=== PATIENT | female | born 1995 | race Caucasian/White ===

== ENCOUNTER 2019-02-25 14:05 | Emergency (ER) | payer BC, SELFPAY ==
[2019-02-25 14:07] VITALS: BP 132/84; PULSE 90; RESP 18; TEMP 36.6; O2SAT 99; BMI 34.7
[2019-02-25] MEDS: Ketorolac 15 MG/ML Vial IV (15:07)
[2019-02-25] MEDS: 0.9% Normal Saline 1,000 ML 1000 ML IV (15:07)
[2019-02-25 15:10] LABS: Absolute Neutrophil Count 8.7 X10^3/uL (2.0-7.7); Basophil# 0.07 X10^3/uL; Basophil% 0.6 % (0-1); Eosinophil# 0.15 X10^3/uL; Eosinophils% 1.3 % (0-5); Hematocrit 43.3 % (37-47); Hemoglobin 13.7 g/dL (12.0-15.0); Lymphocyte % 15.1 % (19-41); Mean Corp Hgb Conc 31.6 g/dL (32-36); Mean Corpuscular Hgb 26.4 pg (27.0-32.0); Mean Corpuscular Volume 83.6 fL (81-99); Mean Platelet Vol. 9.5 fl (6.2-12.0); Monocyte# 1.21 X10^3/uL; Monocyte% 10.1 % (0-10); NRBC Flagged by Analyzer 0 % (0-5); Neutrophil # 8.67 X10^3/uL (2.7-7.7); Neutrophil % 72.5 % (47-70); Platelet Count 259 K/mm3 (150-450); RBC Distribution Width SD 42.8 fl (35.1-43.9); Red Blood Count 5.18 M/mm3 (4.2-5.4)
[2019-02-25 15:17] LABS: Bacteria 0 SEEN /hpf (None Seen); Mucous, Urine 0 SEEN /hpf (<or=2+)
[2019-02-25 15:32] LABS: Anion Gap 8 (5-15); BUN 10 mg/dL (7-18); BUN/Creat Ratio 11.5 RATIO (10-20); Calcium,Total 8.9 mg/dL (8.5-10.1); Chloride 108 mmol/L (98-107); Creatinine, Serum 0.87 mg/dL (0.55-1.02); EST Glomerular Filtration Rate 84 mL/min (>60); Est Glom Filt Rate - Afr Amer 101 mL/min (>60); Estimated Creatinine Clearance 98.85 ml/min; Glucose 86 mg/dL (74-106); Potassium 4.4 mmol/L (3.5-5.1); Sodium Level 142 mmol/L (136-145)
[2019-02-25 15:40] LABS: Color, Urine Yellow (Yellow); Glucose, Dipstick Normal (Normal); Ketone-Dipstick 5 mg/dl (Negative); Leukocyte Esterase-Dipstick 25 /ul (Negative); Nitrite-Dipstick Negative (Negative); Occult Blood-Urine 10 /ul (Negative); Protein-Dipstick 15 mg/dl (Negative); Specific Gravity, Urine 1.015 (1.002-1.030); Urine Clarity Cloudy (Clear); Urine Urobilinogen Normal (Normal)
--- NOTE | 2019-02-25 15:41 | ED.VIS.GEN ---
History of Present Illness Chief Complaint: General Illness Narrative: Patient presenting for evaluation secondary to generalized illness. Patient states that she has been sick for basically a week. It started with a sore throat and ear pain. She states that those symptoms persisted over the course of 5 days, but in the last 24 to 48 hours she is developed significant fatigue and fevers. Patient denies that she is having any sort of headache or neck pain. She went to urgent care had a rapid strep test that was obtained which was negative, so they felt that she needed to come to the emergency department for further evaluation. Patient denies significant nausea vomiting or diarrhea. No urinary signs or symptoms. No sick contacts, recent admissions to the hospital, antibiotic exposure, or travel. Past Medical History - Allergies and Home Meds Allergies/Adverse Reactions: Allergies latex Allergy (Verified 02/25/19 14:06) Hives dicyclomine [From Bentyl] Adverse Reaction (Verified 02/25/19 14:06) Other Primary Care Physician: Jamil Ridley DO [Primary Care Provider] - Past Medical History: None Smoking Status: Never smoker Review of Systems All systems negative except as indicated General: Reports: Chills, Fever, Malaise ENT: Reports: Bilateral ear pain, Sore throat Respiratory: Denies: Cough Physical Exam Vital Signs/Narrative: Vital Signs Temp Pulse Resp BP Pulse Ox 02/25/19 14:07 97.8 F 90 18 132/84 H 99 Inital Vital Signs reviewed: Yes General: Well nourished, Well developed, No Acute Distress Head: Normocephalic, Atraumatic Eyes: Perrl, EOMI ENT: Moist mucous membranes, No rhinorrhea, - - Some cobblestoning is noted in the posterior pharynx, but no evidence of posterior fullness asymmetry erythema or exudate. Anterior cervical lymphadenopathy is noted Neck: Supple, Nontender Cardiovascular: Regular rate, Regular rhythm, No murmurs Respiratory: No distress, CTA bilaterally, Chest nontender Abdomen: Soft, Nontender, Nondistended, Normal bowel sounds Back: Nontender, Normal Inspection Extremities: Nontender, No edema Skin: Normal color, No rash Neurological: Alert, Oriented x3, Cranial nerves II-XII grossly intact, Normal Strength, Normal Sensation Psychological: Normal affect, Normal Mood Diagnostic/Tx/Re-eval - Medical Decision Making Patient presented secondary to generalized illness. Patient was given fluids and Toradol. Urine was negative. Urinalysis was negative. CBC, chemistry, influenza were also found to be unremarkable. Repeat evaluation and patient at 1630 showed some symptomatic improvement. At this point patient likely has an element of viral illness. She was recommended conservative treatment and follow-up with primary care. ED Disposition - Plan for ED Patient: Disposition: Home or Assisted Living Diagnosis: Viral illness Instructions: FEBRILE ILLNESS, Uncertain Cause (Adult) Referrals: Jamil Ridley, [Primary Care Provider] - 3-5 Days if not improving
[2019-02-25 15:47] LABS: Urine Bilirubin Dipstick 1 mg/dL (Negative)
[2019-02-25 15:56] LABS: Internal QC Validated? YES +Cl - CLEAR BKGD; Pregnancy, Urine Negative Negative
[2019-02-25 16:15] LABS: Amorphous Sediment 1+ URATE; Red Blood Cells-Urine 0-5 SEEN /hpf (0-5); Squamous Epithelial Cells - UA 10-25 SEEN /hpf (5-10); White Blood Cells 0-5 SEEN /hpf (0-5)
[2019-02-25 16:58] VITALS: BP 122/86; PULSE 69; RESP 18; O2SAT 98
--- NOTE | 2019-02-25 16:58 | ED.RN ---
PT GIVEN WRITTEN AND VERBAL DISCHARGE INSTRUCTIONS. PT VERBALIZES UNDERSTANDING AND DENIES ANY FURTHER QUESTIONS. PT VERBALIZES UNDERSTANDING AND DENIES ANY FURTHER QUESTIONS. PT IV D/C AND COVERED WITH 2X2 GAUZE AND PAPER TAPE. PT DRESSES SELF AND AMBULATES OUT OF DEPT WITH FAMILY.
== END 2019-02-25 17:01 | disposition home or self-care (01) ==
PROVIDERS: Emergency Provider Emergency Medicine; Family Provider Student in an Organized Health Care Education/Training Program; PCP Student in an Organized Health Care Education/Training Program
DX: B34.9 Viral infection, unspecified (principal); Z91.040 Latex allergy status
CPT/HCPCS: 80048; 81001; 81025; 85025; 87804; 99283; J7030; A4216

== ENCOUNTER 2019-11-19 10:11 | Emergency (ER) | payer BC, SELFPAY ==
[2019-11-19 10:13] VITALS: BP 148/96; PULSE 77; RESP 18; TEMP 36.2; O2SAT 99; BMI 34.2
--- NOTE | 2019-11-19 10:44 | US_ITS ---
STUDY: ULTRASOUND TRANSVAGINAL CLINICAL: Female, 24 years old. HEAVY BLEEDING AND CRAMPING X 4 DAYS- PLAN B PILL TAKEN 6 DAYS AGO -- ON BC PILL TECHNIQUE: Transvaginal COMPARISON: None. FINDINGS: Normal uterine size measuring 6.9 cm in maximal craniocaudal dimension. There are no myometrial masses. Normal endometrial thickness measuring 3 mm. There are no endometrial masses, and there is no fluid in the endometrial cavity. Normal uterine cervix. Normal right ovary, measuring 3.9 x 1.5 x 1.5 cm. There are multiple follicles without a dominant cyst. Normal left ovary, measuring 1.9 x 2.6 x 1.0 cm. There are multiple follicles without a dominant cyst. The bladder is sonographically normal No demonstrated free fluid US/Transvaginal Non- IMPRESSION: No suspicious sonographic findings Electronically Signed: Ashkan Blanc MD at 12:51 EDT , Service support ,
[2019-11-19 10:58] LABS: Bacteria 0 SEEN /hpf (None Seen); Mucous, Urine 0 SEEN /hpf (<or=2+); White Blood Cells 0 SEEN /hpf (0-5)
[2019-11-19 11:02] LABS: Glucose, Dipstick Normal (Normal); Internal QC Validated? YES +Cl - CLEAR BKGD; Ketone-Dipstick Negative (Negative); Leukocyte Esterase-Dipstick Negative /ul (Negative); Nitrite-Dipstick Negative (Negative); Occult Blood-Urine 250 /ul (Negative); Pregnancy, Urine Negative Negative; Protein-Dipstick 15 mg/dl (Negative); Urine Bilirubin Dipstick Negative (Negative); Urine Clarity Cloudy (Clear); Urine Urobilinogen Normal (Normal)
[2019-11-19 11:03] LABS: Color, Urine SEE COMMENT BELOW (Yellow)
[2019-11-19 11:09] LABS: Red Blood Cells-Urine 25-50 SEEN /hpf (0-5)
[2019-11-19 11:10] LABS: Squamous Epithelial Cells - UA 0-5 SEEN /hpf (5-10)
--- NOTE | 2019-11-19 11:30 | ED.VISSUMM ---
- ER Visit Summary Date of Service: 11/19/19 Chief Complaint: Pelvic cramping History of Present Illness: The patient is a 24 F presenting with pelvic cramping. Patient states that she had intercourse on Sunday and took Plan B on . On Sunday she started having pelvic cramping. On Sunday she started having vaginal bleeding. She states that it is not the right time for her period. She has cramps that feels like typical menstrual cramps. She denies syncope. She does not believe she could be . Denies other complaints. Physical Examination: Vitals are stable. Patient is afebrile. Alert no acute distress. HEENT exam is unremarkable. Neck is supple. Lungs are clear and equal bilaterally. Heart is regular rate and rhythm. Abdomen is soft suprapubic tenderness with no guarding or rebound Pelvic exam: Small amount of blood in the vaginal vault with no adnexal tenderness. Extremities are unremarkable. Skin is warm and dry. Remainder of exam is unremarkable. Emergency Department Course and Treatment: Urinalysis shows 25-50 red blood cells, 0 white cells. hCG negative. Pelvic ultrasound shows no suspicious sonographic findings. Patient was given Toradol IM with improvement. On repeat evaluation, she is feeling improved. She is advised to continue NSAIDs at home. Advised to follow-up with COMPUTER SYSTEMS ENGINEER. Advised return to the ED for worsening complaints. Disposition: Discharge home Impression: Irregular vaginal bleeding This note was generated with [employer] dictation software. It may contain incorrect words, spelling, and punctuation that were not noted in review of the chart prior to signing ED Disposition - Plan for ED Patient: Instructions: ED Pelvic Pain [facility] Referrals: Jamil Ridley DO [Primary Care Provider] - Eliza Lugo NP-C [Nurse Practitioner] -
[2019-11-19] MEDS: Ketorolac 30 MG/ML Syringe IM (11:57)
--- NOTE | 2019-11-19 12:57 | ED.DEP ---
ED Disposition - Plan for ED Patient: Instructions: ED Pelvic Pain [facility] Referrals: Jamil Ridley DO [Primary Care Provider] - Eliza Lugo NP-C [Nurse Practitioner] -
== END 2019-11-19 13:18 | disposition home or self-care (01) ==
LOC: ED 12:34
PROVIDERS: Emergency Provider Emergency Medicine; PCP Student in an Organized Health Care Education/Training Program
DX: N93.9 Abnormal uterine and vaginal bleeding, unspecified (principal); I10 Essential (primary) hypertension
CPT/HCPCS: 76830; 81001; 81025; 96372; 99282

== ENCOUNTER → 2020-02-05 16:25 | Outpatient (CLI) | payer BC, SELFPAY ==
[2020-02-05 15:03] VITALS: BMI 34.2
[2020-02-10 03:06] LABS: Chlamydia By Nucleic Acid AMP Negative (Negative)
[2020-02-10 09:44] LABS: Gonococcus By Nucleic Acid AMP Negative (Negative)
[2020-02-13 02:07] LABS: HPV APTIMA, High Risk Positive (Negative); HPV Reflexed? YES, CHARGE PATIENT
== END ==
PROVIDERS: PCP Student in an Organized Health Care Education/Training Program; Referring Provider Nurse Practitioner Women's Health; Visit Provider Nurse Practitioner Women's Health
DX: Z11.3 Encounter for screening for infections with a predominantly sexual mode of transmission (principal)
CPT/HCPCS: 87491; 87591; 87624; 88175; G0145

== ENCOUNTER → 2020-03-02 18:07 | Outpatient (CLI) | payer BC, SELFPAY ==
--- NOTE | 2020-03-02 | IMM_PTH ---
PATIENT: RICHARD FIGUEROA LOC: [facility] U#:[id number] AGE/SX: 30/F ROOM: RE03/02/[address]: Dr. Earnestine Bowling MD : 1995 BED: DIS: SPEC #: [id number] RECD: 03/04/20 12:03 STATUS: MARLEY HI #: [id number] STEVE: 03/02/20 00:[address]: Earnestine Bowling DEPT: IMMUNOHISTOCHEMISTRY RECD BY: Lula Gonzales Tissues: A - Endocervical Procedures: p16 (initial) KI-67 (add) PHYSICIAN & INSTITUTION [place] [id number] SPECIMEN INFORMATION: Tissue Source: A - Cervix at 12 and 6 o'clock Clinical Info: ASCUS HPV+ Specimen Number: [id number] CPT code: 11697, 57769 METHODOLOGY: Deparaffinized sections of prefer/formalin-fixed tissue or PAP/DQ stained slides are incubated with monoclonal/polyclonal antibodies/oligonucleotide probes. Localization is made via biotin free immunoperoxidase method. Appropriate controls are performed and reacted as expected. Results on target cell population are indicated in the following table: RESULTS: ANTIBODY / CLONE RESULT Block A P16 (E6H4) positive, focal, block-like Ki-67 (30-9) positive, moderate These tests were developed and their performance characteristics determined by [facility]. They may not have been cleared or approved by the U.S. Food and Drug Administration. The FDA has determined that such clearance or approval is not necessary. The above immunohistochemical/dualISH markers are ordered and reviewed by the Pathologist. INTERPRETATION: A. 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 AM:brigido 03/05/20 Case has been reviewed in consultation with Dr. Perez who concurs with the above diagnosis. IDC:SJ
--- NOTE | 2020-03-02 | CER_PTH ---
PATIENT: RICHARD FIGUEROA [facility]#:[id number] AGE/SX: 30/F ROOM: RE03/02/[address]: Dr. Earnestine Bowling MD : 1995 BED: DIS: SPEC #: [id number] RECD: 03/02/20 18:07 STATUS: MARLEY HI #: [id number] STEVE: 03/02/20 00:[address]: Earnestine Bowling DEPT: SURGICAL PATHOLOGY RECD BY: Tena Lindsay Tissues: A - Uterine cervix, NOS B - Endocervical Procedures: Surgery Specimen Level IV HEADER OPERATION: Colposcopy PRE-OP DIAGNOSIS: ASCUS HPV+ TISSUE SUBMITTED: A - Cervix at 12 and 6 o'clock, B - ECC MICROSCOPIC DIAGNOSIS A. Cervix at 6 and 12 o'clock, biopsies: Mild and focal moderate squamous dysplasia, CADY I-II (HSIL). Changes consistent with HPV cytopathic effect. Chronic inflammation. See comment. B. Endocervix, curettings (cell block): Scant benign endocervical cells present. No evidence of dysplasia. AM:brigido 03/04/20 COMMENT A. Results from immunohistochemistry ([id number]) for surrogate HPV marker (p16) will be reported separately. Case has been reviewed in consultation with Dr. Perez who concurs with the above diagnosis. IDC:SJ MICROSCOPIC DESCRIPTION Slides are reviewed. GROSS DESCRIPTION A - Received in fixative is one container labeled with the patient's name and designated 12 and 6 o'clock. The specimen consists of two irregular fragments of light gaitan soft tissue that in aggregate measure 0.8 x 0.6 x 0.1 cm. The specimen is totally submitted in one cassette. B - Received in fixative is one container labeled with the patient's name and designated endocervix curettings. The specimen consists of a scant amount of soft tissue. The specimen is totally submitted for cell block preparation. / AM:brigido 03/03/20 TC:3 CPT: 37904 x2
[2020-03-02 14:53] VITALS: BMI 33.9
== END ==
PROVIDERS: Visit Provider Obstetrics & Gynecology
DX: N87.1 Moderate cervical dysplasia (principal)
CPT/HCPCS: 88305; 88341; 88342

== ENCOUNTER → 2020-03-30 17:30 | Outpatient (REF) | payer BC, SELFPAY ==
[2020-03-22 13:06] VITALS: BMI 34.2
[2020-03-30 19:43] LABS: Probe Check PASS; Specimen Processing Control PASS
== END ==
LOC: COVBMS 17:30
PROVIDERS: Obstetrics & Gynecology; PCP Student in an Organized Health Care Education/Training Program; Referring Provider Obstetrics & Gynecology; Visit Provider Obstetrics & Gynecology
DX: Z20.828 Contact with and (suspected) exposure to other viral communicable diseases (principal)
CPT/HCPCS: 87633; 87635; C9803; U0002

== ENCOUNTER 2020-04-06 09:50 | Day surgery (SDC) | payer BC, SELFPAY ==
[2020-03-22 13:06] VITALS: BMI 34.2
[2020-04-06] VITALS (8 sets, daily range): BP systolic 102–125; BP diastolic 68–88; PULSE 52–76; RESP 12–18; TEMP 35.8–36.5; O2SAT 95–100; BMI 34.2
--- NOTE | 2020-04-06 | IMM_PTH ---
PATIENT: RICHARD FIGUEROA LOC: [facility] U#:[id number] AGE/SX: 25/F ROOM: RE04/06/[address]: Dr. Earnestine Bowling MD : 1995 BED: DIS: 04/06/2020 SPEC #: [id number] RECD: 04/07/20 13:21 STATUS: MARLEY REQ #: [id number] STEVE: 04/06/20 00:[address]: Earnestine Bowlnig DEPT: IMMUNOHISTOCHEMISTRY RECD BY: Lula Gonzales ENTERED: 04/07/20 13:22 SP TYPE: IMMUNO OTHR DR: Dr. Jamil Ridley, Tissues: A - UTERINE CERVIX LEEP Procedures: p16 (initial) KI-67 (add) P16 (add) PHYSICIAN & INSTITUTION [place] [address] SPECIMEN INFORMATION: Tissue Source: A - LEEP Clinical Info: CADY II Specimen Number: [id number] A2 & A4 CPT code: 41501, 07227 x3 METHODOLOGY: Deparaffinized sections of prefer/formalin-fixed tissue or PAP/DQ stained slides are incubated with monoclonal/polyclonal antibodies/oligonucleotide probes. Localization is made via biotin free immunoperoxidase method. Appropriate controls are performed and reacted as expected. Results on target cell population are indicated in the following table: RESULTS: ANTIBODY / CLONE RESULT Block A2 P16 (E6H4) positive, focal block staining Ki-67 (30-9) positive, moderate Block A4 P16 (E6H4) positive, focal patchy staining Ki-67 (30-9) positive, low These tests were developed and their performance characteristics determined by [facility]. They may not have been cleared or approved by the U.S. Food and Drug Administration. The FDA has determined that such clearance or approval is not necessary. The above immunohistochemical/dualISH markers are ordered and reviewed by the Pathologist. INTERPRETATION: A. Cervix, LEEP conization: Focal mild and moderate squamous dysplasia. SJ:brigido 04/08/20
--- NOTE | 2020-04-06 10:16 | PCM.HPOB.BLA ---
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 Is patient in pain?: No Allergies latex Allergy (Verified 03/22/20 13:07) Hives dicyclomine [From Bentyl] Adverse Reaction (Verified 03/22/20 13:07) Other Medications Hydrochlorothiazide 12.5 mg DAILY 02/25/19 [History Confirmed 03/22/20] norethindrone (contraceptive) 0.35 mg tablet 0.35 mg PO QDAY #84 tab 02/05/20 [Rx Confirmed 03/22/20] Post menopausal: No Patient : No : No PFSH Medical History HTN (hypertension) (Chronic) Surgical History (Updated 03/22/20 @ 13:06 by Michelle New) History of colonoscopy (Acute) History of esophagogastroduodenoscopy (EGD) (Acute) History of tonsillectomy (Acute) Status post colposcopy (Acute) Family History Unknown Diabetes Heart disease Hypertension Social History (Updated 03/22/20 @ 18:[address] Earnestine Bowling MD) adopted: No number of children: 0 current occupational status: employed current occupation: [employer] history of recent travel: No sexually active: Yes Smoking Status: Never smoker alcohol intake: current alcohol intake frequency: a few times a month substance use type: does not use what type of physical activity do you participate in: none seatbelt use: always do you feel safe at home: Yes additional social history: Single HPI HSIL pap: Details: RICHARD JIMENES is a 25 year old who presents for colposcopy results. Patient reports overall doing well since colposcopy. Denies vaginal bleeding. Does report occasional occasional cramping that sometimes is severe enough that she requires ibuprofen. Otherwise reports doing well. ROS Const Reports system reviewed and no additional complaints, except as documented Card Reports system reviewed and no additional complaints, except as documented Resp Reports system reviewed and no additional complaints, except as documented GI Reports system reviewed and no additional complaints, except as documented Reports system reviewed and no additional complaints, except as documented Musc Reports system reviewed and no additional complaints, except as documented all other systems reviewed and negative Exam Const General: cooperative, healthy appearing, comfortable, well developed, well groomed Neck Neck: normal visual inspection, full ROM Resp Effort & Inspection: normal respiratory effort, able to speak in complete sentences, symmetric chest movement Cardio Rate: regular rate Skin General: no rashes or lesions noted, elasticity normal, turgor normal Lesions: no lesions Rashes: no rashes Neuro General: alert, awake, oriented x3 Cranial Nerves: CN's II-XI intact bilaterally, PERRL, EOM intact bilaterally Cognition: normal cognition Speech: speech normal Gait: normal gait Extrem General: normal to inspection, full ROM, no pedal edema Psych Appearance: grossly normal Mental Status: mental status grossly normal Mood: congruent mood Affect: normal affect Speech and Movement: speech and movement normal Attitude: cooperative Thought Process: normal Thought Content: normal Assessment & Plan 1. CADY II (cervical intraepithelial neoplasia II) N87.1 Plan Pap ASCUS with positive high-risk other HPV. Colposcopy pathology CADY 1-2 with moderate dysplasia. ECC negative. Reviewed with patient that per ASC CP guidelines neck steps in management could be either immediate LEEP procedure or close follow-up with repeat colposcopy and cotesting at 6 and 12 months. Risks and benefits of each option reviewed with the patient. She is nulliparous and is concerned about possible implications. She is considering expectant management, but wanted to go home and allow her time to think about this. We did also discussed the risks, benefits, indications, and alternatives to a LEEP procedure. We discussed the possible risk of bleeding and that this is typically controlled using cautery. Discussed risk of infection relatively low, but would typically present with foul smelling discharge or fevers after delivery. Discussed risk of damage to cervix and uterus. Discussed that this can rarely result in excessive bleeding that could potentially result in need for hysterectomy. Also discussed possible impact on future fertility. The patient and her mother were given the opportunity to ask questions and all questions were answered to the best of my ability. Handouts provided from [facility] and up-to-date with information regarding management of abnormal Pap smears and LEEP procedures. UPDATE- I have seen the patient and performed any clinically relevant updates to the history and physical exam. Earnestine Bowling MD
[2020-04-06 10:19] LABS: Hematocrit 42.9 % (37-47); Hemoglobin 13.5 g/dL (12.0-15.0); Mean Corp Hgb Conc 31.5 g/dL (32-36); Mean Corpuscular Hgb 26.4 pg (27.0-32.0); Mean Platelet Vol. 9.4 fl (6.2-12.0); Platelet Count 342 K/mm3 (150-450); RBC Distribution Width CV 13.9 % (11.6-14.6); RBC Distribution Width SD 42.1 fl (35.1-43.9); Red Blood Count 5.11 M/mm3 (4.2-5.4); White Blood Count 8.1 K/mm3 (4.4-11.0)
[2020-04-06 10:21] LABS: Internal QC Validated? YES +Cl - CLEAR BKGD; Pregnancy, Urine Negative Negative
[2020-04-06] MEDS: Lactated Ringers 1,000 ML 100 ML IV (10:44)
--- NOTE | 2020-04-06 11:30 | CER_PTH ---
PATIENT: RICHARD FIGUEROA LOC: [facility] U#:[id number] AGE/SX: 25/F ROOM: RE04/06/[address]: Dr. Earnestine Bowling MD : 1995 BED: DIS: 04/06/2020 SPEC #: [id number] RECD: 04/06/20 13:09 STATUS: MARLEY REKala #: [id number] STEVE: 04/06/20 11:[address]: Earnestine Bowling DEPT: SURGICAL PATHOLOGY RECD BY: Tena Lindsay ENTERED: 04/06/20 13:28 SP TYPE: CERV OTHR DR: Dr. Jamil Ridley, Tissues: A - UTERINE CERVIX LEEP B - Endocervical Procedures: Surgery Specimen Level IV Surgery Specimen Level V HEADER OPERATION: LEEP cone PRE-OP DIAGNOSIS: CADY II TISSUE SUBMITTED: A - LEEMarisela, B - ECC MICROSCOPIC DIAGNOSIS A. Cervix, LEEP conization: Mild and focal moderate squamous dysplasia. Chronic inflammation and squamous metaplasia. Resection margins are free of dysplastic changes. See comment. B. ECC: Paucicellular specimen showing rare desquamated benign endocervical epithelial cells. See comment. SJ:brigido 04/07/20 COMMENT A. Immunohistochemistry ([id number]) for surrogate HPV marker (p16) supports the above diagnosis. MICROSCOPIC DESCRIPTION Slides are reviewed. GROSS DESCRIPTION A - Received in fixative is one container labeled with the patient's name and designated LEEP. The specimen consists of a gaitan, indurated piece of LEEP conization measuring 1.5 x 1.5 cm and up to 1.5 cm in length. No mucosal lesion is identified. The nonmucosal surface is inked black. The endocervical resection margin is inked blue. The specimen is not oriented. The specimen is serially sectioned and submitted entirely in four cassettes with each cassette containing one quadrant. B - Received in fixative is one container labeled with the patient's name and designated ECC. The specimen consists of a scant amount of soft tissue. The specimen is totally submitted for cell block preparation. / ANÍBAL:brigido 04/06/20 TC:5 CPT: 78017, 09699
--- NOTE | 2020-04-06 12:16 | DCINST_ITS ---
Discharge Diet: No Restrictions Discharge Activity: Return to Normal Activity, May not drive while taking narcotic pain medications. May resume sexual activity in: 4 weeks - nothing in the vagina for 4 weeks. Call your doctor if you observe: Fever of 101 or Higher, Using more than one pad per hour Allergies/Adverse Reactions: Allergies latex Allergy (Verified 04/06/20 10:19) Hives dicyclomine [From Bentyl] Adverse Reaction (Verified 04/06/20 10:19) Other Medications to take at Discharge Hydrochlorothiazide 12.5 mg PO DAILY 02/25/19 norethindrone (contraceptive) 0.35 mg tablet 0.35 mg PO QDAY #84 tab 02/05/20 Ibuprofen [Motrin] 600 mg PO Q6H PRN PRN #30 tab 04/06/20 Oxycodone [Oxyir] 5 mg PO Q6H PRN PRN 7 Days #5 tab 04/06/20 The following prescriptions were given: Ibuprofen [Motrin] 600 mg PO Q6H PRN PRN #30 tab PRN Reason: Pain Transmission Status: Pending to [facility] Oxycodone [Oxyir] 5 mg PO Q6H PRN PRN 7 Days #5 tab PRN Reason: Pain Score 6-10/10 Transmission Status: Sent to [facility] Primary Care Physician: Jamil Ridley DO [Primary Care Provider] - Test Results: Test results from this visit will be discussed in further detail at your follow- up appointment, if applicable. Please Follow Up With: Earnestine Bowling MD When: 2 weeks
--- NOTE | 2020-04-06 12:19 | PCM.OPRPT ---
Problem List (1) CADY II (cervical intraepithelial neoplasia II) Status: Acute Report of Operation Date of Procedure: 04/06/20 Pre-Operative Diagnosis: CADY II Post-Operative Diagnosis: Same Surgery/Procedure Performed:: LEEP, ECC Description of Surgical Findings:: Well appearing cervix. Nonstaining area from 12-3 o'clock once Lugol's solution was applied. Type of Anesthesia:: Local MAC Special Medications: 1% lidocaine Specimen's removed: LEEP of cervix, ECC Estimated Blood Loss (mL): 10 ml Description of Procedure: Patient was taken to the operating room where general anesthesia was obtained without difficulty. She was prepped and draped in the dorsolithotomy position with yellowfin stirrups. A insulated speculum was placed in the vagina. A paracervical block was performed using 10 cc of 1% lidocaine. Lugol's solution was applied to the cervix and a nonstaining area was noted from 12-3 o'clock. A 1 cm loop was then used to perform the LEEP on 70 W of pure cut energy. An endocervical curettage was then performed. The rollerball was then used to obtain hemostasis. Adequate hemostasis was noted and Monsel solution was applied to the cervix. All instruments were removed from the vagina. All counts were correct x2. The patient was taken to the recovery room in stable condition. - Complications None - Admit VTE Documentation VTE Present on Admission: No VTE Mechan Device Prophylaxis: [facility] [place] VTE Pharm Prophylaxis ordered?: No Multi Select Codes - Urinary/Genital Urinary/Genital CPT Codes: 93615 Endocervical curettage, 05065 LEEP
[2020-04-06] MEDS: Iodine/Potassium Iodide 14ML Bottle 1 DRP TOPICAL (12:25)
[2020-04-06] MEDS: FERRIC SUBSULFATE 8 GM SOLN (12:30)
== END 2020-04-06 14:28 | disposition home or self-care (01) ==
LOC: SDC 09:51 → AC 09:57
PROVIDERS: Anesthesiology; PCP Student in an Organized Health Care Education/Training Program; Referring Provider Obstetrics & Gynecology; Visit Provider Obstetrics & Gynecology
PROC: 0UBC7ZZ Excision of Cervix, Via Natural or Artificial Opening (ICD-10-PCS; CPT 57522; principal; 2020-04-06 11:15)
DX: N87.1 Moderate cervical dysplasia (principal); Z91.040 Latex allergy status; I10 Essential (primary) hypertension
CPT/HCPCS: 00940; 57522; 81025; 85027; 86850; 86900; 86901; 87426; 88305; 88307; 88341; 88342; J7120; J2405

== ENCOUNTER 2020-04-20 11:26 | Day surgery (SDC) | payer BC, SELFPAY ==
[2020-04-16 11:32] VITALS: BMI 34.7
[2020-04-20] VITALS (8 sets, daily range): BP systolic 120–159; BP diastolic 88–106; PULSE 76–113; RESP 16–18; TEMP 36.6–36.7; O2SAT 93–100; BMI 36.1
--- NOTE | 2020-04-20 12:09 | ED.VIS.GEN ---
History of Present Illness Chief Complaint: Vag Bleeding Informant: Patient Onset: Weeks Maximum Severity: Mild Narrative: Patient presents complaining of vaginal bleeding Indicates she had a LEEP procedure related to abnormal cervical cells about 10 days ago she had persistent bleeding she was seen by her providers [facility] [employer] [facility] she had some spike of medication placed over her cervix seem to slow the bleeding down never stop it the bleeding intensified today she called her providers was unable to get through via the phone and she came to the emergency department she also complaining of crampy lower pelvic pain since the procedure She is on no supplement she has no history of bleeding disorder she has no other complaints Past Medical History - Allergies and Home Meds Allergies/Adverse Reactions: Allergies latex Allergy (Verified 04/20/20 11:27) Hives dicyclomine [From Bentyl] Adverse Reaction (Verified 04/20/20 11:27) Other Primary Care Physician: Jamil Ridley DO [Primary Care Provider] - Past Medical History: - Smoking Status: Never smoker Review of Systems ROS: - Recent LEEP procedure General: Denies: Chills, Fever, Sweats Eyes: Denies: Visual changes - bilaterally, Diplopia ENT: Denies: Rhinorrhea, Sore throat Cardiovascular: Denies: Chest pain, Palpitations Respiratory: Denies: Dyspnea, Cough, Dyspnea on exertion Gastrointestinal: Denies: Abdominal pain, Nausea, Vomiting, Diarrhea, Melena, Hematochezia Genitourinary: Reports: - - Crampy pelvic pain vaginal bleeding. Denies: Dysuria, Hematuria, Frequency Musculoskeletal: Denies: Back pain, Extremity Pain Skin: Denies: Rash, Wounds Neurological: Denies: Headache, Weakness, Numbness Physical Exam Vital Signs/Narrative: Vital Signs Temp Pulse Resp BP Pulse Ox 04/20/20 11:27 97.9 F 113 H 17 159/106 H 98 General: Well nourished, Well developed, No Acute Distress Head: Normocephalic, Atraumatic Eyes: Perrl, EOMI ENT: Moist mucous membranes, No rhinorrhea Neck: Supple, Nontender Cardiovascular: Regular rate, Regular rhythm, No murmurs Respiratory: No distress, CTA bilaterally, Chest nontender Abdomen: Soft, Nontender, Nondistended, Normal bowel sounds : - - Examined with nurse director of teaching and learning she has a vaginal vault full of blood clots and blood were removed, the cervix was visualized there appears to be a red scab over most of the cervix this area seem to be oozing slowly blood there was no obvious signs of definitive aggressive bleeding Back: Nontender, Normal Inspection Extremities: Nontender, No edema Skin: Normal color, No rash Neurological: Alert, Oriented x3, Cranial nerves II-XII grossly intact, Normal Strength, Normal Sensation Psychological: Normal affect, Normal Mood Diagnostic/Tx/Re-eval - Medical Decision Making Given all the above and her complaints and the degree of bleeding weeks paged [facility] [employer] [employer] [facility] to discuss with them With Dr. Julio Cesar Garzon she will be coming down shortly to see the patient for further management Disposition Home stable after being seen by gynecology Impression final bleeding from LEEP incision status post LEEP procedure ED Disposition - Plan for ED Patient: Diagnosis: Bleeding from LEEP site Referrals: Jamil Ridley DO [Primary Care Provider] -
[2020-04-20] MEDS: FERRIC SUBSULFATE 8 GM SOLN TOPICAL (12:40)
[2020-04-20] MEDS: Lactated Ringers 1,000 ML 999 ML IV (13:35)
[2020-04-20] MEDS: fentaNYL 100 MCG/2 ML Ampul 50 MCG IV (13:36)
[2020-04-20] MEDS: FERRIC SUBSULFATE 8 GM SOLN (13:38)
[2020-04-20] MEDS: Lidocaine 1% (20 ml mdv) 20 ML Vial (13:40)
[2020-04-20 13:45] LABS: Absolute Lymphocyte Count 1.49 X10^3/uL (0.83-4.51); Absolute Neutrophil Count 2.8 X10^3/uL (2.0-7.7); Basophil# 0.02 X10^3/uL; Basophil% 0.4 % (0-1); Eosinophil# 0.06 X10^3/uL; Eosinophils% 1.2 % (0-5); Hematocrit 40.2 % (37-47); Hemoglobin 12.6 g/dL (12.0-15.0); Lymphocyte # 1.49 X10^3/ul (4.0); Lymphocyte % 30.5 % (19-41); Mean Corp Hgb Conc 31.3 g/dL (32-36); Mean Corpuscular Hgb 26.4 pg (27.0-32.0); Mean Corpuscular Volume 84.3 fL (81-99); Mean Platelet Vol. 9.8 fl (6.2-12.0); Monocyte# 0.54 X10^3/uL; NRBC Flagged by Analyzer 0 % (0-5); Neutrophil # 2.76 X10^3/uL (2.7-7.7); Neutrophil % 56.5 % (47-70); Platelet Count 296 K/mm3 (150-450); RBC Distribution Width CV 14.2 % (11.6-14.6); RBC Distribution Width SD 43.8 fl (35.1-43.9); Red Blood Count 4.77 M/mm3 (4.2-5.4); White Blood Count 4.9 K/mm3 (4.4-11.0)
--- NOTE | 2020-04-20 14:01 | NURSING ---
OR THEN MED SURG MARCANTHONY VAG BLEED
--- NOTE | 2020-04-20 14:15 | PCM.HP.STD ---
Problem List (1) Post-op bleeding Status: Acute (2) H/O LEEP Status: Acute History of Present Illness Date of Admission: 04/20/20 The patient is a 25 year old F presents with postop bleeding from the cervix, needs to have reoperation to manage. Past Medical History Medical History: Medical History (Last Reviewed 04/16/20 @ 11:32 by Michelle New) HTN (hypertension) I10 Allergies latex Allergy (Verified 04/20/20 11:27) Hives dicyclomine [From Bentyl] Adverse Reaction (Verified 04/20/20 11:27) Other Home Medications: Ambulatory Orders Medication Instructions Recorded Hydrochlorothiazide 12.5 mg PO DAILY 02/25/19 norethindrone (contraceptive) 0.35 0.35 mg PO QDAY #84 tab 02/05/20 mg tablet Naproxen [Naprosyn] 250 - 500 mg PO Q8H PRN PRN #30 tab 04/20/20 Oxycodone HCl/Acetaminophen 1 - 2 tab PO Q6H PRN PRN 7 Days 04/20/20 [Percocet 5-325] #15 tab Surgical History: Surgical History (Last Reviewed 04/16/20 @ 11:32 by Michelle New) History of colonoscopy Z98.890 History of esophagogastroduodenoscopy (EGD) Z98.890 History of tonsillectomy Z90.89 S/P LEEP Z98.890 CADY II, moderate dysplasia, - margins, - ECC Status post colposcopy Z98.890 Smoking Status: Never smoker Review of Systems Constitutional: Denies: Fever, Malaise Eyes: Denies: Blurred vision, Vision Change HEENT: Reports: Head Aches. Denies: Visual Changes Cardiovascular: Reports: Light Headedness. Denies: Chest Pain, Palpitations Respiratory: Denies: Cough, Shortness of Breath, Wheezing Gastrointestinal: Reports: Abdominal Pain, Nausea. Denies: Diarrhea, Vomiting Genitourinary: Denies: Dysuria, Hematuria Gynecological: Reports: Vaginal bleeding Musculoskeletal: Denies: Joint Pain, Muscle pain Skin: Denies: Lesions, Rash Neurological: Denies: Blurred vision, Focal weakness, Headaches Psychiatric: Denies: Anxiety, Depression Endocrine: Denies: Heat/ Cold Intolerance Hematologic/ Lymphatic: Denies: Easy Bruising, Easy Bleeding VTE Information - Inpt Only VTE Present on Admission: No Patient Problems: Active and Suspected Problems (Last Reviewed 04/16/20 @ 11:32 by Michelle New) Post-op bleeding (Acute) H/O LEEP (Acute ~04/06/20) - Physical Exam Vitals/I&O's: Vital Signs Temp Pulse Resp BP Pulse Ox 97.9 F 76 16 137/103 H 99 04/20/20 11:27 04/20/20 13:34 04/20/20 13:34 04/20/20 13:34 04/20/20 13:34 Oxygen Delivery Method Room Air Weight: 237 lb 7.005 oz Body Mass Index (BMI) 36.1 General: Alert, Oriented x3, Cooperative HEENT: Atraumatic, PERRLA, EOMI, Normocephalic Neck: Supple, No JVD, Negative Carotid Bruits Lungs: Clear to auscultation, Normal air movement Cardiovascular: Regular rate, No murmurs Abdomen: Bowel Sounds Present, Soft, Non Tender Extremities: No edema, Capillary Refill Less than 3 Seconds Skin: No rashes, No breakdown Musculoskeletal: No Tenderness to Palpation of Joints or Extremities Neurological: Cranial nerves II-XII grossly intact Psych/Mental Status: Normal Affect, Appropriate Laboratory Results 04/20/20 13:25: WBC 4.9, RBC 4.77, Hgb 12.6, Hct 40.2, MCV 84.3, MCH 26.4 L, MCHC 31.3 L, RDW Std Deviation 43.8, RDW Coeff of Lance 14.2, Plt Count 296, MPV 9.8, Immature Gran % (Auto) 0.400, Neut % (Auto) 56.5, Lymph % (Auto) 30.5, [place] % (Auto) 11.0 H, Eos % (Auto) 1.2, Baso % (Auto) 0.4, Absolute Neuts (auto) 2.8, Absolute Lymphs (auto) 1.49, Nucleated RBC % 0 04/20/20 13:25: Blood Type Pending, Antibody Screen Pending Assessment/Plan All Active Problems (Last Reviewed 04/16/20 @ 11:32 by Michelle New) Post-op bleeding (Acute) H/O LEEP (Acute ~04/06/20) CADY II (cervical intraepithelial neoplasia II) (Acute) ASCUS with positive high risk HPV cervical (Acute) HPV in female (Acute) Atypical squamous cells of undetermined significance (ASCUS) on Papanicolaou smear of cervix (Acute) 25 yo with postop bleeding at cervix recommend pelvic exam under anesthesia, patient consented and to proceed with surgery Office Visits / Consults: [id number] OV L4 Est - to OR same day
--- NOTE | 2020-04-20 15:07 | PCM.OPRPT ---
Problem List (1) Post-op bleeding Status: Acute (2) H/O LEEP Status: Acute Report of Operation Date of Procedure: 04/20/20 Pre-Operative Diagnosis: postop bleeding Post-Operative Diagnosis: same Surgery/Procedure Performed:: Exam under anesthesia cervical laceration repair Description of Surgical Findings:: Broad-based with active bleeding and arterial source seen on anterior lip Type of Anesthesia:: Local MAC Special Medications: Gelfoam Specimen's removed: None Drains: None Estimated Blood Loss (mL): 100 cc Fluids Replaced: crystalloid Description of Procedure: Was taken back to the abdomen placed in the MAC local anesthesia was prepped and draped in normal sterile fashion in dorsolithotomy position. Cervix was noted to have an active arterial source of bleeding on the anterior lip and generalized oozing around the base with the LEEP eschar was present. Electrocautery was used around the base followed by a Sturmdorf suture and bilateral stay sutures at 3 and 9:00. Gelfoam was placed at the base of the cervix and both sutures were tied down as well as an additional [id number] on the posterior lip. Hemostasis was noted and Monsel's was applied. Patient was awoken and taken recovery in stable condition Grafts/Implants Used: none - Complications none - Admit VTE Documentation VTE Present on Admission: No Multi Select Codes - Urinary/Genital Urinary/Genital CPT Codes: 94580 PEUA - cervical suturing and repair of bleeding
--- NOTE | 2020-04-20 15:11 | PCM.DC.LEE ---
Discharge Diet: No Restrictions Discharge Activity: Return to Normal Activity, May not drive while taking narcotic pain medications. May resume sexual activity in: 4 weeks - Nothing in the vagina for 4 weeks Call your doctor if you observe: Fever of 101 or Higher, Using more than one pad per hour Allergies/Adverse Reactions: Allergies latex Allergy (Verified 04/20/20 11:27) Hives dicyclomine [From Bentyl] Adverse Reaction (Verified 04/20/20 11:27) Other Medications to take at Discharge Hydrochlorothiazide 12.5 mg PO DAILY 02/25/19 norethindrone (contraceptive) 0.35 mg tablet 0.35 mg PO QDAY #84 tab 02/05/20 Naproxen [Naprosyn] 250 - 500 mg PO Q8H PRN PRN #30 tab 04/20/20 Oxycodone HCl/Acetaminophen [Percocet 5-325] 1 - 2 tab PO Q6H PRN PRN 7 Days #15 tab 04/20/20 The following prescriptions were given: Naproxen [Naprosyn] 250 - 500 mg PO Q8H PRN PRN #30 tab PRN Reason: MILD PAIN Transmission Status: Received by [facility] Oxycodone HCl/Acetaminophen [Percocet 5-325] 1 - 2 tab PO Q6H PRN PRN 7 Days #15 tab PRN Reason: Pain Transmission Status: Received by [facility] Primary Care Physician: Jamil Ridley DO [Primary Care Provider] - Test Results: Test results from this visit will be discussed in further detail at your follow-up appointment, if applicable. Please Follow Up With: Wanda Diaz MD - [phone]
[2020-04-20] MEDS: HYDROcodone Bitartrate/Apap 5/325 Tablet PO (15:59)
== END 2020-04-20 16:34 | disposition home or self-care (01) ==
LOC: ED 14:42 → SDC 14:47 → ACINP 14:47
PROVIDERS: Emergency Provider Emergency Medicine; PCP Student in an Organized Health Care Education/Training Program; Visit Provider Obstetrics & Gynecology
PROC: 0UBC7ZZ Excision of Cervix, Via Natural or Artificial Opening (ICD-10-PCS; CPT 57522; principal; 2020-04-20 13:45)
DX: N99.820 Postprocedural hemorrhage of a genitourinary system organ or structure following a genitourinary system procedure (principal); I10 Essential (primary) hypertension; Z79.1 Long term (current) use of non-steroidal anti-inflammatories (NSAID); Z91.040 Latex allergy status; Z79.899 Other long term (current) drug therapy
CPT/HCPCS: 00940; 57522; 85025; 86850; 86900; 86901; 99284; J7120; A4216; J2405

== ENCOUNTER 2021-03-03 06:29 | Emergency (ER) | payer OTHER, SELFPAY ==
[2021-03-03 06:30] VITALS: BP 130/94; PULSE 107; RESP 16; TEMP 35.9; O2SAT 98; BMI 29.8
--- NOTE | 2021-03-03 06:57 | EDS_ITS ---
HPI History of Present Illness Chief Complaint: Laceration Detail of Chief Complaint: Laceration left long finger Informant: patient Occured/Mechanism Mechanism/Context: Yes work related Comment: Laceration Onset/Context/Timing Timing: Continuous Current Severity: Mild Maximum Severity: Mild Worsened by: Nothing Relieved by: Nothing Associated Symptoms Associated Symptoms: Negative for Parasthesia, Weakness and Loss of Funtion Narrative Narrative: Patient is a 26-year-old [id number] woman who presents with laceration to the left finger dorsal side over the PIP joint. She denies paresthesia, anesthesia medics. She has no other complaints. Tetanus Immunization: 5-10 years Prior similar symptoms: No Recent Illness/Hospitalization: No PFSH PFSH Medical History (Updated 03/03/21 @ 07:[address] Cirilo Montaño MD) HTN (hypertension) Post-op bleeding Home Medications hydrochlorothiazide 12.5 mg PO DAILY 02/25/19 [History Last Taken Unknown] norethindrone (contraceptive) 0.35 mg tablet 0.35 mg PO QDAY #84 tab 02/05/20 [Rx Last Taken Unknown] Allergy/AdvReac Type Severity Reaction Status Date / Time latex Allergy Hives Verified 03/03/21 06:29 dicyclomine [From Bentyl] AdvReac Other Verified 03/03/21 06:29 Family History Unknown Diabetes Heart disease Hypertension Surgical History History of colonoscopy History of esophagogastroduodenoscopy (EGD) History of tonsillectomy S/P LEEP Status post colposcopy Social History adopted: No number of children: 0 current occupational status: employed current occupation: [employer] history of recent travel: No sexually active: Yes Smoking Status: Never smoker alcohol intake: current alcohol intake frequency: a few times a month substance use type: does not use what type of physical activity do you participate in: none seatbelt use: always do you feel safe at home: Yes additional social history: Single ROS ROS ED Musculoskeletal Musculoskeletal: Reports back pain, myalgias and neck pain Integumentary Reports other Details: Laceration ; Denies abscess, Abrasions or rash Neurologic Neurologic: Denies paresthesias or weakness Hematologic/Lymphatic Hematologic/Lymphatic: Denies easy bleeding or easy bruising EXAM Physical Exam Const Vital Signs: 03/03/21 06:30 Temperature 96.6 F L Temperature Source Temporal Pulse Rate 107 H Respiratory Rate 16 Blood Pressure 130/94 H Blood Pressure Mean 106 Pulse Ox 98 Oxygen Delivery Method Room Air Positive well nourished and well developed General Appearance ED: well developed and NAD HEENT normocephalic and atraumatic Eyes PERRL and EOMs intact bilaterally Resp normal respiratory effort Cardio regular rate and regular rhythm Extremity Left Upper Extremity: hand and digits inspection (Laceration over the PIP joint dorsal surface), palpation (Normal), ROM (Extensor commonest tendon is intact.), neurovascular exam (Normal sensation and and capillary refill) and tendon exam (There is no involvement of the tendon) Neuro oriented x3 and CN's II-XII intact bilaterally Sensorium / Orientation: alert Psych mental status grossly normal Skin Lesions: no lesions Rashes: no rashes MDM MDM MDM Narrative Medical decision making narrative: Patient has a 1.1 cm laceration over the PIP joint. With flexion the wound opens up. Will place 1-2 sutures. Please read procedure note Procedures Other Procedures Procedure(s): Laceration left long finger Patient has a 1.1 cm laceration dorsal surface of the left long finger. The wound was anesthetized with 1% likable local trace. Wound is cleansed with Shur-Clens and irrigated with 50 cc of normal saline. 1 horizontal mattress suture was placed with good hemostasis and cosmesis. Patient was discharged home with appropriate home-going instructions. Discharge Plan Triage Chief Complaint: Laceration ED Provider: Cirilo Montaño Dx/Rx/DC Orders Clinical Impression: Finger laceration Instructions: ED Laceration, Hand: All Closures Prescriptions: No Action norethindrone (contraceptive) [Katty] 0.35 mg tablet 0.35 mg PO QDAY Qty: 84 RF: 4 hydrochlorothiazide 12.5 MG capsule 12.5 mg PO DAILY RF: 0 Primary Care Provider: Jamil Ridley Referrals: [facility]GROUP OF PHYSICIANS] - 10-14 Days suture removal Jamil Ridley DO [Primary Care Provider] - Disposition Disposition: Home, Self Care
[2021-03-03] MEDS: Lidocaine 1% (20 ml mdv) 20 ML Vial INFILT (07:04)
[2021-03-03 07:27] VITALS: BP 123/69; PULSE 84; RESP 16; O2SAT 97
== END 2021-03-03 07:30 | disposition home or self-care (01) ==
LOC: ED 07:17
PROVIDERS: Emergency Provider Emergency Medicine; PCP Student in an Organized Health Care Education/Training Program
DX: S61.213A Laceration without foreign body of left middle finger without damage to nail, initial encounter (principal); X58.XXXA Exposure to other specified factors, initial encounter; Y92.9 Unspecified place or not applicable; Y99.9 Unspecified external cause status; I10 Essential (primary) hypertension; Z79.899 Other long term (current) drug therapy
CPT/HCPCS: 12001; 99283

== ENCOUNTER 2021-03-22 01:26 | Emergency (ER) | payer OTHER, SELFPAY ==
[2021-03-22 01:27] VITALS: BP 164/100; PULSE 109; RESP 14; TEMP 37.7; O2SAT 98; BMI 30.3
--- NOTE | 2021-03-22 01:35 | RAD_ITS ---
STUDY: X-RAY CHEST REASON FOR EXAM: Female, 26 years old. cough TECHNIQUE: Single AP portable view of the chest. COMPARISON: None. FINDINGS: The lungs are clear and expanded. There is no demonstrated pleural abnormality. Normal size heart. Normal mediastinum and jaylene. Normal visualized pulmonary arteries. Normal visualized aortic arch and descending thoracic aorta. Normal visualized thoracic spine. Normal visualized ribs, clavicles, and shoulders. There is no demonstrated abnormality of the visualized soft tissue structures of the upper abdomen. RAD/Chest 1 View (Portable) IMPRESSION: Normal x-ray examination of the chest. Electronically Signed: Shwetha Salas MD at 2:15 EDT Tel , Service support ,
[2021-03-22] MEDS: Acetaminophen 500 MG Tablet 1000 MG PO (01:39)
--- NOTE | 2021-03-22 01:41 | EX.ED.DYSGE1 ---
HPI History of Present Illness Chief Complaint: General Illness Narrative Narrative: Patient presenting for evaluation secondary to generalized illness. Patient states that since about 2 days ago she has been feeling generally ill. This been associated with fevers, chills, myalgias, cough, some lightheadedness. Patient denies any GI symptoms such as nausea vomiting or diarrhea. Patient denies that she has any significant shortness of breath. Cough is nonproductive. Fevers been intermittently responsive to ibuprofen most recent dose was at 1730 last night. Patient denies any underlying history of immunosuppression or lung disease. Review of systems otherwise negative. [facility] Medical History (Updated 03/22/21 @ 02:[address] Jose Moncada MD) HTN (hypertension) Post-op bleeding Home Medications norethindrone (contraceptive) 0.35 mg tablet 0.35 mg PO QDAY #84 tab 02/05/20 [Rx Last Taken Unknown] Allergy/AdvReac Type Severity Reaction Status Date / Time latex Allergy Hives Verified 03/22/21 01:30 dicyclomine [From Bentyl] AdvReac Other Verified 03/22/21 01:30 Family History Unknown Diabetes Heart disease Hypertension Surgical History History of colonoscopy History of esophagogastroduodenoscopy (EGD) History of tonsillectomy S/P LEEP Status post colposcopy Social History adopted: No number of children: 0 current occupational status: employed current occupation: [employer] history of recent travel: No sexually active: Yes Smoking Status: Never smoker alcohol intake: current alcohol intake frequency: a few times a month substance use type: does not use what type of physical activity do you participate in: none seatbelt use: always do you feel safe at home: Yes additional social history: Single ROS ROS ED Constitutional Constitutional ED: Reports chills, fever(s) and sweats ENT ENT ED: Denies rhinorrhea Cardiovascular Cardiovascular: Denies chest pain Respiratory/Chest Respiratory/Chest: Reports cough Gastrointestinal Gastrointestinal: Denies abdominal pain, diarrhea, nausea or vomiting Genitourinary Genitourinary ED: Denies dysuria or hematuria Musculoskeletal Musculoskeletal: Reports myalgias Integumentary Denies rash Neurologic Neurologic: Denies paresthesias or weakness Psychiatric Psychiatric: Denies depression Endocrine Endocrinology: Denies fatigue Allergic/Immunologic Allergic/Immunologic ED: Denies urticaria EXAM Physical Exam Const Vital Signs: 03/22/21 01:27 03/22/21 01:30 Temperature 99.9 F H Temperature Source Oral Pulse Rate 109 H Respiratory Rate 14 Respiratory Effort Normal Non-Labored Respiratory Pattern Normal Blood Pressure 164/100 H Blood Pressure Mean 121 Pulse Ox 98 Oxygen Delivery Method Room Air Positive well nourished and well developed General Appearance ED: well developed and NAD HEENT Reports moist mucous membranes Negative for trauma or tenderness Eyes EOMs intact bilaterally Neck no lymphadenopathy, supple and no JVD Chest Wall inspection of chest normal Resp normal respiratory effort and clear to auscultation bilaterally Cardio regular rhythm, no murmurs and peripheral pulses 2+ throughout Rate: other Other Details: Minimal tachycardia GI normal to inspection, nondistended, normoactive bowel sounds, non-tender and no masses Palpation: soft Back/Spine normal to inspection Extremity normal to inspection General Extremety ED: Negative for tenderness Neuro oriented x3 and no sensory deficits noted Sensorium / Orientation: alert Motor Exam: strength 5/5 throughout Psych mental status grossly normal Skin no rashes or lesions noted Skin Narrative: Skin is hot to the touch MDM MDM MDM Narrative Medical decision making narrative: Patient presented secondary to generalized illness. Patient was given Tylenol for treatment of fever. Chest x-ray by my personal review demonstrates no signs of infiltrate. Coronavirus test did result as positive. Patient does not have evidence of hypoxia dehydration or toxicity I do not believe that further work-up is indicated. Patient was educated on expectant management of coronavirus. She was provided with an incentive spirometer. She has a pulse oximeter at home. Patient was discharged in stable condition. Discharge Plan Triage Chief Complaint: General Illness ED Provider: Jose Moncada Dx/Rx/DC Orders Clinical Impression: COVID-19 Instructions: Coronavirus Disease 2019 (COVID-19): Caring for Yourself or Others Prescriptions: No Action norethindrone (contraceptive) [Katty] 0.35 mg tablet 0.35 mg PO QDAY Qty: 84 RF: 4 Primary Care Provider: Jamil Ridley Referrals: Jamil Ridley DO [Primary Care Provider] - (Follow up in 1-2 weeks) Disposition Disposition: Home, Self Care
[2021-03-22 02:13] VITALS: BP 134/99; PULSE 110; RESP 18; O2SAT 97
== END 2021-03-22 02:14 | disposition home or self-care (01) ==
PROVIDERS: Emergency Provider Emergency Medicine; PCP Student in an Organized Health Care Education/Training Program
DX: U07.1 COVID-19 (principal)
CPT/HCPCS: 71045; 87426; 99283

== ENCOUNTER 2021-04-04 18:54 | Emergency (ER) | payer OTHER, SELFPAY ==
[2021-04-04 18:55] VITALS: BP 138/94; PULSE 70; RESP 19; TEMP 34.9; O2SAT 100; BMI 28.8
--- NOTE | 2021-04-04 18:56 | EKG12_ITS ---
Test Reason : CHEST PAIN Blood Pressure : / mmHG Vent. Rate : 068 BPM Atrial Rate : 068 BPM P-R Int : 142 ms QRS Dur : 082 ms QT Int : 384 ms P-R-T Axes : 045 036 028 degrees QTc Int : 408 ms Normal sinus rhythm Normal ECG Confirmed by KENY GOMEZ, MEKA ([id number]), editor dictionary MATTI SHAW ([id number]) on 04/06/2021 9:19:33 AM Referred By: LANRE Confirmed By:MEKA BUSTILLO MD
[2021-04-04 19:29] LABS: Absolute Lymphocyte Count 2.67 X10^3/uL (0.83-4.51); Absolute Neutrophil Count 7.1 X10^3/uL (2.0-7.7); Basophil# 0.05 X10^3/uL; Basophil% 0.5 % (0-1); Eosinophil# 0.11 X10^3/uL; Eosinophils% 1.1 % (0-5); Hematocrit 40.6 % (37-47); Hemoglobin 13.2 g/dL (12.0-15.0); Lymphocyte # 2.67 X10^3/ul (0.83-4.51); Lymphocyte % 25.6 % (19-41); Mean Corp Hgb Conc 32.5 g/dL (32-36); Mean Corpuscular Hgb 27.6 pg (27.0-32.0); Mean Corpuscular Volume 84.9 fL (81-99); Mean Platelet Vol. 9.1 fl (6.2-12.0); Monocyte# 0.53 X10^3/uL; Monocyte% 5.1 % (0-10); NRBC Flagged by Analyzer 0 % (0-5); Neutrophil # 7.05 X10^3/uL (2.7-7.7); Neutrophil % 67.5 % (47-70); Platelet Count 387 K/mm3 (150-450); RBC Distribution Width CV 14.6 % (11.6-14.6); Red Blood Count 4.78 M/mm3 (4.2-5.4); White Blood Count 10.4 K/mm3 (4.4-11.0)
--- NOTE | 2021-04-04 19:47 | RAD_ITS ---
STUDY: X-RAY CHEST REASON FOR EXAM: Female, 26 years old. Chest pain TECHNIQUE: Single frontal view of the chest. COMPARISON: 03/22/2021 FINDINGS: The lungs are clear and expanded. There is no demonstrated pleural abnormality. Normal size heart. Normal mediastinum and jaylene. Normal visualized pulmonary arteries. Normal visualized aortic arch and descending thoracic aorta. Normal visualized thoracic spine. Normal visualized ribs, clavicles, and shoulders. There is no demonstrated abnormality of the visualized soft tissue structures of the upper abdomen. RAD/Chest 1 View (Portable) IMPRESSION: No acute cardiopulmonary process. Electronically Signed: Jeannine Smith MD at 20:02 EST Tel , Service support ,
[2021-04-04 19:48] LABS: Anion Gap 5 (5-15); BUN 10 mg/dL (7-18); Calcium,Total 9.1 mg/dL (8.5-10.1); Chloride 108 mmol/L (98-107); Creatinine, Serum 0.84 mg/dL (0.55-1.02); EST Glomerular Filtration Rate 86 mL/min (>60); Est Glom Filt Rate - Afr Amer 104 mL/min (>60); Glucose 86 mg/dL (74-106); Potassium 3.8 mmol/L (3.5-5.1); Sodium Level 138 mmol/L (136-145); Troponin-I HS 6 pg/mL (3.0-54.0)
[2021-04-04 21:08] VITALS: O2SAT 100
[2021-04-04 21:11] VITALS: BP 131/97; PULSE 58; RESP 12; O2SAT 100
--- NOTE | 2021-04-04 21:43 | EDS_ITS ---
HPI History of Present Illness Chief Complaint: Chest Pain Informant: patient Narrative Narrative: He has waxing waning chest pain for 4 days. Denies any current cough or fevers. No radicular symptoms. No nausea or vomiting. Denies tobacco. Reports some sort of family history of heart problems in her dad. Denies hypertension diabetes hypercholesterolemia. She is on oral contraceptive however no tobacco history. No recent travel or surgeries. No history of PE or DVT. She reports she was Covid +11 days ago with sore throat headache. Symptoms resolved 5 days ago. However chest symptoms started. Reports exertional dyspnea. CVD Risk Factors: Negative for Hypertension, Diabetes, Hypercholesterolemia and Smoking [facility] Medical History (Updated 04/04/21 @ 22:[address] Ishan Cade DO) HTN (hypertension) Post-op bleeding Home Medications norethindrone (contraceptive) 0.35 mg tablet 0.35 mg PO QDAY #84 tab 04/04/21 [Rx Last Taken Unknown] Allergy/AdvReac Type Severity Reaction Status Date / Time latex Allergy Hives Verified 04/04/21 18:56 dicyclomine [From Bentyl] AdvReac Other Verified 04/04/21 18:56 Family History Unknown Diabetes Heart disease Hypertension Surgical History History of colonoscopy History of esophagogastroduodenoscopy (EGD) History of tonsillectomy S/P LEEP Status post colposcopy Social History adopted: No number of children: 0 current occupational status: employed current occupation: [employer] history of recent travel: No sexually active: Yes Smoking Status: Never smoker alcohol intake: current alcohol intake frequency: a few times a month substance use type: does not use what type of physical activity do you participate in: none seatbelt use: always do you feel safe at home: Yes additional social history: Single ROS ROS ED Constitutional Constitutional ED: Denies chills, fever(s) or sweats Eyes Eyes: Denies change in vision ENT ENT ED: Denies dysphagia or sore throat Cardiovascular Cardiovascular: Reports chest pain; Denies leg edema, palpitations or racing heartbeat Respiratory/Chest Respiratory/Chest: Reports dyspnea; Denies cough or dyspnea on exertion Gastrointestinal Gastrointestinal: Denies abdominal pain, diarrhea, nausea or vomiting Genitourinary Genitourinary ED: Denies dysuria, hematuria or urinary frequency Musculoskeletal Musculoskeletal: Denies back pain, extremity pain or neck pain Integumentary Denies rash or wounds Neurologic Neurologic: Denies headache(s), paresthesias or weakness EXAM Physical Exam Const Vital Signs: 04/04/21 18:55 04/04/21 21:08 04/04/21 21:11 Temperature 94.8 F L Temperature Source Temporal Pulse Rate 70 58 L Respiratory Rate 19 H 12 Respiratory Effort Blood Pressure 138/94 H 131/97 H Blood Pressure Mean 108 108 Pulse Ox 100 100 100 Oxygen Delivery Method Room Air Room Air Room Air 04/04/21 21:12 Temperature Temperature Source Pulse Rate Respiratory Rate Respiratory Effort Normal Non-Labored Blood Pressure Blood Pressure Mean Pulse Ox Oxygen Delivery Method Positive well nourished and well developed General Appearance ED: well developed and NAD HEENT Reports moist mucous membranes normocephalic and atraumatic Eyes PERRL, EOMs intact bilaterally and conjunctivae normal General Eye ED: Yes normal appearance of both eyes Neck no lymphadenopathy and supple General: Negative for tenderness Chest Wall Chest: Negative for tenderness Resp normal respiratory effort and normal air movement Effort and Inspection: symmetric chest movement; Negative for respiratory distress Cardio regular rate, regular rhythm and no murmurs Peripheral Pulses: pulses 2+ throughout GI normal to inspection, nondistended, normoactive bowel sounds and non-tender Palpation: Negative for guarding or rebound tenderness present Back/Spine no CVA tenderness and no thoracic nor lumbar tenderness Extremity normal to inspection General Extremety ED: Negative for edema or tenderness General Extremity: Negative for edema Neuro oriented x3 and no sensory deficits noted Sensorium / Orientation: awake and alert Skin no rashes or lesions noted and no wounds Heart Score History: Slightly/Non-Suspicious ECG: Normal Age: </= 45 years Risk Factors: 1 or 2 Risk Factors Troponin: </= Normal Limit Score: 1 MDM MDM MDM Narrative Medical decision making narrative: Patient work-up started in triage. EKG reviewed by myself with nonspecific changes. Chest x-ray 1 view reviewed by myself and read by radiology negative. Basic labs initial troponin normal. Will send for repeat 2-hour troponin and a D-dimer was added due to her recent Covid diagnosis with exertional dyspnea. Her pulse ox 100% on room air. D-dimer negative repeat troponin negative. Heart score is a 1. She is ambulate with a pulse ox was 99 -100%. Discussed with patient recovering from Covid day 11 from diagnosis. Discussed likely residual symptoms at this time. With her tightness albuterol MDI was provided to use as needed. She will follow-up with her PCP all questions were answered. Patient is being discharged under pandemic conditions under declared global, n ational and state disaster activation, with limited medical resources. Patient and community understands this. Results discussed in layman's terms to the patient satisfaction. All questions answered in layman's terms. Patient understands importance of follow-up care as directed. Patient has been instructed to return to the ED immediately if new symptoms, problems, or questions occur. We mutually agree with the plan of disposition. The patient understand that they may call or return with any questions or concerns at any time. Lab Data Attestation: I reviewed the patient's lab results. Labs: Laboratory Results - last 24 hr 04/04/21 04/04/21 04/04/21 19:25 19:25 21:32 WBC 10.4 RBC 4.78 Hgb 13.2 Hct 40.6 MCV 84.9 MCH 27.6 MCHC 32.5 RDW Std Deviation 45.0 H RDW Coeff of Lance 14.6 Plt Count 387 MPV 9.1 Immature Gran % (Auto) 0.200 Neut % (Auto) 67.5 Lymph % (Auto) 25.6 [place] % (Auto) 5.1 Eos % (Auto) 1.1 Baso % (Auto) 0.5 Absolute Neuts (auto) 7.1 Absolute Lymphs (auto) 2.67 Nucleated RBC % 0 D-Dimer Quant (PE/DVT) <= 0.27 Sodium 138 Potassium 3.8 Chloride 108 H Carbon Dioxide 25.0 Anion Gap 5 BUN 10 Creatinine 0.84 Estim Creat Clear Calc 104.20 Est GFR (MDRD) Af Amer 104 Est GFR (MDRD) Non-Af 86 BUN/Creatinine Ratio 12.0 Glucose 86 Calcium 9.1 Troponin I High Sens 6 Serum , Qual 04/04/21 04/04/21 21:32 21:32 WBC RBC Hgb Hct MCV MCH MCHC RDW Std Deviation RDW Coeff of Lance Plt Count MPV Immature Gran % (Auto) Neut % (Auto) Lymph % (Auto) [place] % (Auto) Eos % (Auto) Baso % (Auto) Absolute Neuts (auto) Absolute Lymphs (auto) Nucleated RBC % D-Dimer Quant (PE/DVT) Sodium Potassium Chloride Carbon Dioxide Anion Gap BUN Creatinine Estim Creat Clear Calc Est GFR (MDRD) Af Amer Est GFR (MDRD) Non-Af BUN/Creatinine Ratio Glucose Calcium Troponin I High Sens 6 Serum , Qual NEGATIVE Radiography Chest X-Ray - ED: 1 View, Read by ED Physician and Read by Radiologist Diagnostic Testing: Clinical Impression(s) from Imaging Studies Chest X-Ray 04/04/21 19:47 IMPRESSION: No acute cardiopulmonary process. Electronically Signed: Jeannine Smith MD at 20:02 EST Tel , Service support , EKG Initial EKG: Attestation: I personally reviewed and interpreted this EKG as follows: Comments: Sinus rate of 68, no ST changes isolated T wave inversion leads III. Nonspecific. Discharge Plan Triage Chief Complaint: Chest Pain ED Provider: Ishan Cade Dx/Rx/DC Orders Clinical Impression: Chest pain, COVID-19 Instructions: Coronavirus Disease 2019 (COVID-19): Overview, ED Chest Pain, Noncardiac Prescriptions: No Action norethindrone (contraceptive) [Katty] 0.35 mg tablet 0.35 mg PO QDAY Qty: 84 RF: 0 Primary Care Provider: Jamil Ridley Referrals: Jamil Ridley DO [Primary Care Provider] - 3-5 Days Activity Restrictions/Additional Instructions: Cardiac work-up negative. D-dimer negative. Use inhaler as needed. Monitor symptoms. Follow-up with your doctor for reevaluation as an outpatient. Disposition Disposition: Home, Self Care Discharge Date/Time: 04/04/21 23:05
[2021-04-04 22:04] LABS: Internal QC Validated? YES +Cl - CLEAR BKGD; Pregnancy, Serum, hCG Quali. NEGATIVE Negative
[2021-04-04 22:08] LABS: Troponin-I HS 6 pg/mL (3.0-54.0)
[2021-04-04 22:11] LABS: D-Dimer Quantitative (DVT/PE) <= 0.27 FEU/ug/m (0.27-0.49)
[2021-04-04 22:33] VITALS: O2SAT 100
== END 2021-04-04 23:05 | disposition home or self-care (01) ==
PROVIDERS: Emergency Provider Emergency Medicine; PCP Student in an Organized Health Care Education/Training Program
DX: U07.1 COVID-19 (principal); R07.9 Chest pain, unspecified; I10 Essential (primary) hypertension; Z79.3 Long term (current) use of hormonal contraceptives
CPT/HCPCS: 71045; 80048; 84484; 84703; 85025; 85379; 93005; 94640; 99285; A4216

== ENCOUNTER → 2021-04-11 16:20 | Outpatient (CLI) | payer OTHER, SELFPAY ==
[2021-04-20 13:34] LABS: HPV APTIMA, High Risk Negative (Negative); HPV Reflexed? YES, CHARGE PATIENT
== END ==
PROVIDERS: PCP Student in an Organized Health Care Education/Training Program; Referring Provider Obstetrics & Gynecology; Visit Provider Obstetrics & Gynecology
DX: N89.8 Other specified noninflammatory disorders of vagina (principal); Z87.42 Personal history of other diseases of the female genital tract; Z98.890 Other specified postprocedural states
CPT/HCPCS: 87070; 87205; 87624; 88175; G0145

== ENCOUNTER → 2021-04-19 13:22 | Outpatient (CLI) | payer OTHER, SELFPAY ==
[2021-04-19 14:13] LABS: Vitamin B12 582 pg/mL (211-911); Vitamin D,25 Hydroxy 33.5 ng/mL
[2021-04-19 14:20] LABS: ALB/GLOB Ratio 0.9 RATIO (0.9-2.4); AST(SGOT) 14 U/L (15-37); Alanine Aminotransfer ALT/SGPT 38 U/L (13-56); Albumin, Serum 3.3 g/dL (3.2-5.0); Alkaline Phosphatase 69 U/L (45-117); Anion Gap 6 (5-15); BUN 17 mg/dL (7-18); BUN/Creat Ratio 21.4 RATIO (10-20); Calcium,Total 8.4 mg/dL (8.5-10.1); Chloride 106 mmol/L (98-107); Cholesterol 117 mg/dL (200); EST Glomerular Filtration Rate 91 mL/min (>60); Est Glom Filt Rate - Afr Amer 110 mL/min (>60); Globulin 3.6 g/dL (2.2-4.2); Glucose 78 mg/dL (74-106); High Density Lipoprotein 54 mg/dL; Potassium 4.8 mmol/L (3.5-5.1); Protein, Total 6.9 g/dL (6.4-8.2); Sodium Level 138 mmol/L (136-145); Thyroid Stim Hormone (TSH) 2.09 uIU/mL (0.358-3.74); Triglycerides 49 mg/dL; Very Low Density Lipoprotein 10 mg/dL (5-40)
== END ==
PROVIDERS: PCP Student in an Organized Health Care Education/Training Program; Visit Provider Student in an Organized Health Care Education/Training Program
DX: E78.5 Hyperlipidemia, unspecified (principal); R53.83 Other fatigue; T14.8XXA Other injury of unspecified body region, initial encounter
CPT/HCPCS: 80053; 80061; 82306; 82607; 84443

== ENCOUNTER → 2022-07-04 | Outpatient (CLI) | payer BC, SELFPAY ==
[2022-07-11 18:25] LABS: HPV Reflexed? NOT INDICATED
== END | disposition home or self-care (01) ==
PROVIDERS: PCP Student in an Organized Health Care Education/Training Program; Visit Provider Obstetrics & Gynecology
DX: Z53.20 Procedure and treatment not carried out because of patient's decision for unspecified reasons (principal)
CPT/HCPCS: 88175; G0145

== ENCOUNTER → 2023-10-09 | Outpatient (CLI) | payer BC, OTHER, SELFPAY ==
[2023-10-09 09:46] LABS: Absolute Lymphocyte Count 1.73 X10^3/uL (0.83-4.51); Absolute Neutrophil Count 5.8 X10^3/uL (2.0-7.7); Basophil# 0.05 X10^3/uL; Basophil% 0.6 % (0-1); Eosinophils% 1.2 % (0-5); Hematocrit 38.2 % (37-47); Hemoglobin 12.3 g/dL (12.0-15.0); Lymphocyte # 1.73 X10^3/ul (0.83-4.51); Mean Corp Hgb Conc 32.2 g/dL (32-36); Mean Corpuscular Hgb 24.9 pg (27.0-32.0); Mean Corpuscular Volume 77.5 fL (81-99); Mean Platelet Vol. 9.3 fl (6.2-12.0); Monocyte# 0.51 X10^3/uL; Monocyte% 6.2 % (0-10); NRBC Flagged by Analyzer 0 % (0-5); Neutrophil % 70.5 % (47-70); Platelet Count 377 K/mm3 (150-450); RBC Distribution Width CV 15.5 % (11.6-14.6); RBC Distribution Width SD 43.8 fl (35.1-43.9); Red Blood Count 4.93 M/mm3 (4.2-5.4); White Blood Count 8.2 K/mm3 (4.4-11.0)
[2023-10-09 12:06] LABS: HIV - WCH Non-Reactive (Nonreactive); Hepatitis B Surface Antigen Non-Reactive (Nonreactive); Hepatitis C Antibody Non-Reactive (Nonreactive); Rubella IgG Reactive (Nonreactive); Syphilis Antibodies Non-reactive
[2023-10-09 13:08] LABS: Hemoglobin A1c 5.3 % (3.8-5.6)
[2023-10-11 06:09] LABS: Chlamydia By Nucleic Acid AMP Negative (Negative); Gonococcus By Nucleic Acid AMP Negative (Negative)
[2023-10-13 03:07] LABS: HPV APTIMA, High Risk Positive (Negative); HPV Genotype 16, Aptima Negative (Negative); HPV Genotype 18,45 Aptima Negative (Negative)
== END | disposition home or self-care (01) ==
PROVIDERS: PCP Student in an Organized Health Care Education/Training Program; Referring Provider Obstetrics & Gynecology; Visit Provider Obstetrics & Gynecology
DX: O99.210 Obesity complicating pregnancy, unspecified trimester (principal); Z12.4 Encounter for screening for malignant neoplasm of cervix; Z3A.00 Weeks of gestation of pregnancy not specified
CPT/HCPCS: 36415; 83036; 85025; 86703; 86762; 86780; 86803; 86850; 86900; 86901; 87086; 87088; 87340; 87491; 87591; 87624; 88175; G0145

== ENCOUNTER → 2023-11-08 | Outpatient (CLI) | payer BC, OTHER, SELFPAY | END | disposition home or self-care (01) | LOC: LAB 15:59 | PROVIDERS: PCP Student in an Organized Health Care Education/Training Program; Referring Provider Advanced Practice Midwife; Visit Provider Advanced Practice Midwife | DX: Z34.01 Encounter for supervision of normal first pregnancy, first trimester (principal) | CPT/HCPCS: 36415 ==

== ENCOUNTER → 2023-11-26 | Outpatient (CLI) | payer BC, OTHER, SELFPAY | END | disposition home or self-care (01) | LOC: PAVLAB 08:59 | PROVIDERS: PCP Student in an Organized Health Care Education/Training Program; Referring Provider Nurse Practitioner Women's Health; Visit Provider Nurse Practitioner Women's Health | DX: Z34.82 Encounter for supervision of other normal pregnancy, second trimester (principal); Z3A.00 Weeks of gestation of pregnancy not specified ==

== ENCOUNTER → 2024-01-25 | Outpatient (CLI) | payer BC, OTHER, SELFPAY | END | disposition home or self-care (01) | LOC: LAB 13:55 | PROVIDERS: PCP Student in an Organized Health Care Education/Training Program; Referring Provider Obstetrics & Gynecology; Visit Provider Obstetrics & Gynecology | DX: Z34.92 Encounter for supervision of normal pregnancy, unspecified, second trimester (principal); Z3A.21 21 weeks gestation of pregnancy | CPT/HCPCS: 36415; 82105; 82677; 84702 ==

== ENCOUNTER → 2024-02-04 | Outpatient (CLI) | payer BC, OTHER, SELFPAY ==
[2024-02-04 12:15] LABS: Absolute Lymphocyte Count 1.54 X10^3/uL (0.83-4.51); Absolute Neutrophil Count 8.9 X10^3/uL (2.0-7.7); Basophil# 0.04 X10^3/uL; Basophil% 0.4 % (0-1); Eosinophil# 0.12 X10^3/uL; Eosinophils% 1.1 % (0-5); Hematocrit 35.4 % (37-47); Hemoglobin 10.9 g/dL (12.0-15.0); Lymphocyte # 1.54 X10^3/ul (0.83-4.51); Lymphocyte % 13.6 % (19-41); Mean Corp Hgb Conc 30.8 g/dL (32-36); Mean Corpuscular Hgb 23.7 pg (27.0-32.0); Mean Corpuscular Volume 77.1 fL (81-99); Mean Platelet Vol. 9.3 fl (6.2-12.0); Monocyte# 0.63 X10^3/uL; Monocyte% 5.6 % (0-10); NRBC Flagged by Analyzer 0 % (0-5); Neutrophil # 8.88 X10^3/uL (2.7-7.7); Neutrophil % 78.5 % (47-70); Platelet Count 366 K/mm3 (150-450); RBC Distribution Width CV 15.7 % (11.6-14.6); Red Blood Count 4.59 M/mm3 (4.2-5.4); White Blood Count 11.3 K/mm3 (4.4-11.0)
[2024-02-04 12:46] LABS: ALB/GLOB Ratio 0.6 RATIO (0.9-2.4); AST(SGOT) 15 U/L (15-37); Alanine Aminotransfer ALT/SGPT 28 U/L (13-56); Albumin, Serum 2.4 g/dL (3.2-5.0); Alkaline Phosphatase 107 U/L (45-117); Anion Gap 9 (5-15); BUN 4 mg/dL (7-18); Calcium,Total 9.4 mg/dL (8.5-10.1); Chloride 107 mmol/L (98-107); Creatinine, Serum 0.57 mg/dL (0.55-1.02); EST Glomerular Filtration Rate 131 mL/min (>60); Est Glom Filt Rate - Afr Amer 158 mL/min (>60); Globulin 4.3 g/dL (2.2-4.2); Glucose 92 mg/dL (74-106); Potassium 3.8 mmol/L (3.5-5.1); Protein, Total 6.7 g/dL (6.4-8.2); Sodium Level 137 mmol/L (136-145)
== END | disposition home or self-care (01) ==
LOC: LAB 11:29
PROVIDERS: PCP Student in an Organized Health Care Education/Training Program; Referring Provider Nurse Practitioner Women's Health; Visit Provider Nurse Practitioner Women's Health
DX: O16.9 Unspecified maternal hypertension, unspecified trimester (principal); Z3A.00 Weeks of gestation of pregnancy not specified
CPT/HCPCS: 36415; 80053; 85025

== ENCOUNTER → 2024-02-04 | Outpatient (CLI) | payer BC, OTHER, SELFPAY ==
[2024-02-04 11:57] LABS: Protein, Urine (Random) 11.4 mg/dL (<11.9); Protein:Creat Ratio 177 mg/g CRE (0-200)
== END | disposition home or self-care (01) ==
LOC: LABSPEC 11:30
PROVIDERS: PCP Student in an Organized Health Care Education/Training Program; Referring Provider Nurse Practitioner Women's Health; Visit Provider Nurse Practitioner Women's Health
DX: O16.9 Unspecified maternal hypertension, unspecified trimester (principal); Z3A.00 Weeks of gestation of pregnancy not specified
CPT/HCPCS: 82570; 84156

== ENCOUNTER → 2024-02-12 | Outpatient (CLI) | payer BC, OTHER, SELFPAY ==
[2024-02-12 11:17] LABS: Protein, Urine (Random) 24.6 mg/dL (<11.9); Protein:Creat Ratio 172 mg/g CRE (0-200)
[2024-02-12 12:12] LABS: Absolute Lymphocyte Count 1.78 X10^3/uL (0.83-4.51); Basophil# 0.03 X10^3/uL; Basophil% 0.2 % (0-1); Eosinophil# 0.19 X10^3/uL; Eosinophils% 1.4 % (0-5); Hematocrit 35.7 % (37-47); Hemoglobin 11.1 g/dL (12.0-15.0); Lymphocyte # 1.78 X10^3/ul (0.83-4.51); Lymphocyte % 12.7 % (19-41); Mean Corp Hgb Conc 31.1 g/dL (32-36); Mean Corpuscular Hgb 23.7 pg (27.0-32.0); Mean Corpuscular Volume 76.1 fL (81-99); Mean Platelet Vol. 9.4 fl (6.2-12.0); Monocyte# 0.85 X10^3/uL; Monocyte% 6.1 % (0-10); NRBC Flagged by Analyzer 0 % (0-5); Neutrophil # 11.03 X10^3/uL (2.7-7.7); Neutrophil % 78.7 % (47-70); Platelet Count 394 K/mm3 (150-450); RBC Distribution Width CV 15.9 % (11.6-14.6); RBC Distribution Width SD 43.4 fl (35.1-43.9); Red Blood Count 4.69 M/mm3 (4.2-5.4)
[2024-02-12 12:41] LABS: ALB/GLOB Ratio 0.5 RATIO (0.9-2.4); AST(SGOT) 14 U/L (15-37); Alanine Aminotransfer ALT/SGPT 29 U/L (13-56); Albumin, Serum 2.3 g/dL (3.2-5.0); Alkaline Phosphatase 114 U/L (45-117); Anion Gap 8 (5-15); BUN 7 mg/dL (7-18); BUN/Creat Ratio 13.2 RATIO (10-20); Chloride 107 mmol/L (98-107); Creatinine, Serum 0.53 mg/dL (0.55-1.02); EST Glomerular Filtration Rate 142 mL/min (>60); Est Glom Filt Rate - Afr Amer 172 mL/min (>60); Globulin 4.3 g/dL (2.2-4.2); Glucose 93 mg/dL (74-106); Potassium 3.9 mmol/L (3.5-5.1); Protein, Total 6.6 g/dL (6.4-8.2); Sodium Level 135 mmol/L (136-145)
== END | disposition home or self-care (01) ==
PROVIDERS: PCP Student in an Organized Health Care Education/Training Program; Referring Provider Nurse Practitioner Women's Health; Visit Provider Nurse Practitioner Women's Health
DX: O26.892 Other specified pregnancy related conditions, second trimester (principal); R51.9 Headache, unspecified; Z3A.00 Weeks of gestation of pregnancy not specified; O99.891 Other specified diseases and conditions complicating pregnancy
CPT/HCPCS: 36415; 80053; 82570; 84156; 85025

== ENCOUNTER → 2024-03-03 | Outpatient (CLI) | payer BC, OTHER, SELFPAY ==
[2024-03-03 08:07] LABS: Absolute Lymphocyte Count 1.55 X10^3/uL (0.83-4.51); Absolute Neutrophil Count 9.6 X10^3/uL (2.0-7.7); Basophil# 0.05 X10^3/uL; Basophil% 0.4 % (0-1); Eosinophil# 0.16 X10^3/uL; Eosinophils% 1.3 % (0-5); Hematocrit 34.8 % (37-47); Hemoglobin 10.9 g/dL (12.0-15.0); Lymphocyte # 1.55 X10^3/ul (0.83-4.51); Lymphocyte % 12.8 % (19-41); Mean Corp Hgb Conc 31.3 g/dL (32-36); Mean Corpuscular Hgb 23.7 pg (27.0-32.0); Mean Corpuscular Volume 75.8 fL (81-99); Mean Platelet Vol. 9.1 fl (6.2-12.0); Monocyte# 0.62 X10^3/uL; Monocyte% 5.1 % (0-10); NRBC Flagged by Analyzer 0 % (0-5); Neutrophil # 9.62 X10^3/uL (2.7-7.7); Neutrophil % 79.8 % (47-70); Platelet Count 353 K/mm3 (150-450); RBC Distribution Width CV 15.9 % (11.6-14.6); RBC Distribution Width SD 43.6 fl (35.1-43.9); Red Blood Count 4.59 M/mm3 (4.2-5.4); White Blood Count 12.1 K/mm3 (4.4-11.0)
[2024-03-03 10:10] LABS: Glucose Challenge Gest 1H 50g 179 mg/dL (70-140)
[2024-03-03 10:32] LABS: HIV - WCH Non-Reactive (Nonreactive); Syphilis Antibodies Non-reactive
== END | disposition home or self-care (01) ==
PROVIDERS: PCP Student in an Organized Health Care Education/Training Program; Referring Provider Obstetrics & Gynecology; Visit Provider Obstetrics & Gynecology
DX: Z34.93 Encounter for supervision of normal pregnancy, unspecified, third trimester (principal); Z3A.25 25 weeks gestation of pregnancy
CPT/HCPCS: 36415; 82950; 85025; 86703; 86780

== ENCOUNTER → 2024-03-06 | Outpatient (CLI) | payer BC, OTHER, SELFPAY ==
[2024-03-06 10:19] LABS: Bedside Glucose 104 mg/dL (74-106)
[2024-03-06 11:04] LABS: Glucose GTT-Gestation. Fasting 100 mg/dL (<105)
[2024-03-06 12:02] LABS: Glucose GTT-Gestational 1 Hr 199 mg/dL (<190)
[2024-03-06 12:53] LABS: Glucose GTT-Gestational 2 Hr 183 mg/dL (<165)
[2024-03-06 13:36] LABS: Glucose GTT-Gestational 3 Hr 97 L (<145)
== END | disposition home or self-care (01) ==
LOC: LAB 09:31
PROVIDERS: PCP Student in an Organized Health Care Education/Training Program; Referring Provider Nurse Practitioner Women's Health; Visit Provider Nurse Practitioner Women's Health
DX: O99.810 Abnormal glucose complicating pregnancy (principal); Z3A.00 Weeks of gestation of pregnancy not specified
CPT/HCPCS: 36415; 82951; 82952; 82962

== ENCOUNTER 2024-03-26 08:38 | Outpatient (RCR) | payer BC, OTHER, SELFPAY | END 2024-03-27 23:59 | LOC: NS 08:38 | PROVIDERS: PCP Student in an Organized Health Care Education/Training Program; Referring Provider Obstetrics & Gynecology; Visit Provider Obstetrics & Gynecology | DX: Z71.3 Dietary counseling and surveillance (principal); O24.419 Gestational diabetes mellitus in pregnancy, unspecified control | CPT/HCPCS: 97802 ==

== ENCOUNTER 2024-04-02 15:33 | Outpatient (RCR) | payer BC, OTHER, SELFPAY | END 2024-04-26 23:59 | LOC: NS 15:33 | PROVIDERS: PCP Student in an Organized Health Care Education/Training Program; Referring Provider Obstetrics & Gynecology; Visit Provider Obstetrics & Gynecology | DX: Z71.3 Dietary counseling and surveillance (principal); O24.419 Gestational diabetes mellitus in pregnancy, unspecified control | CPT/HCPCS: 97803 ==

== ENCOUNTER 2024-05-05 14:50 | Inpatient (IN) | payer BC, OTHER, SELFPAY ==
[2024-05-05] VITALS (71 sets, daily range): BP systolic 112–156; BP diastolic 65–95; PULSE 62–117; RESP 14–20; TEMP 36.2–37.2; O2SAT 97–100; BMI 42.5
[2024-05-05 12:53] LABS: Hemoglobin 10.9 g/dL (12.0-15.0); Mean Corp Hgb Conc 31.1 g/dL (32-36); Mean Corpuscular Hgb 23.4 pg (27.0-32.0); Mean Corpuscular Volume 75.1 fL (81-99); Mean Platelet Vol. 10.1 fl (6.2-12.0); Platelet Count 277 K/mm3 (150-450); RBC Distribution Width CV 16.5 % (11.6-14.6); RBC Distribution Width SD 44.6 fl (35.1-43.9); Red Blood Count 4.66 M/mm3 (4.2-5.4); White Blood Count 9.7 K/mm3 (4.4-11.0)
[2024-05-05 13:13] LABS: AST(SGOT) 40 U/L (15-37); Alanine Aminotransfer ALT/SGPT 104 U/L (13-56); Creatinine, Serum 0.55 mg/dL (0.55-1.02); EST Glomerular Filtration Rate 138 mL/min (>60); Est Glom Filt Rate - Afr Amer 167 mL/min (>60); Protein:Creat Ratio 470 mg/g CRE (0-200)
--- NOTE | 2024-05-05 14:23 | HP.PCM.OB_ITS ---
HPI - General General Date of Admission: 05/05/24 Date of Service: 05/05/24 HPI Narrative RICHARD FIGUEROA, is a 29 F 35.6 weeks who presents to unit with complaints of headache, dizziness and blurred vision that started this morning. noticed increase lower extremity swelling that started on sunday. Pre E labs drawn and with neurologic sx indicate severe pre eclampsia. Admission orders given. plan cytotec/choi bulb and pitocin. Maternal Data Information MAGALY Calculator Estimated Delivery Date Method Current WG Current Estimate 06/03/24 Ultrasound #1 35w 6d Other Estimates 05/25/24 LMP (Certain) 37w 1d Final MAGALY: 06/03/24 Final MAGALY Source: US >20 weeks Gestational age: 35.6 weeks [facility] Medical History Trauma GERD (gastroesophageal reflux disease) Epigastric abdominal pain ASCUS of cervix with negative high risk HPV Post-op bleeding HTN (hypertension) Home Medications ?Medication ?Instructions ?Recorded ?Last Taken ?Type albuterol sulfate 90 mcg/actuation 2 puff inhalation Q6H PRN 04/11/21 Unknown History aerosol inhaler (ProAir HFA) PNV 178-FA 180 mcg-om3 35 mg-dha tab PO 10/05/23 Unknown History 25 mg-epa 5 mg-fish oil chew tablet promethazine 12.5 mg tablet 12.5 mg PO Q6H PRN nausea and 11/26/23 Unknown Rx vomiting #60 tabs ondansetron HCl 4 mg tablet 4 mg PO Q4H PRN nausea and 02/04/24 Unknown Rx vomiting #60 tabs blood sugar diagnostic (Blood #120 ea 03/06/24 Unknown Rx Glucose Test strips) blood-glucose meter #1 ea 03/06/24 Unknown Rx lancets #200 ea 03/06/24 Unknown Rx flash glucose sensor (FreeStyle #1 ea 03/19/24 Unknown Rx Kalpesh 2 Sensor kit) metformin 500 mg tablet 500 mg PO QDAY #30 tabs 04/03/24 Unknown Rx Allergy/AdvReac Type Severity Reaction Status Date / Time latex Allergy Hives Verified 05/05/24 13:49 dicyclomine (From Bentyl) AdvReac Other Verified 05/05/24 13:49 Family History Unknown No problems noted. Father Diabetes Grandmother Diabetes paternal Heart disease paternal Hypertension paternal Surgical History History of ankle surgery S/P LEEP Status post colposcopy History of tonsillectomy History of esophagogastroduodenoscopy (EGD) History of colonoscopy Social History adopted: No household members: spouse number of children: 0 current occupational status: employed current occupation: [employer] pets and animals: Yes pets and animals: other details: bearded dragon history of recent travel: No sexually active: Yes Smoking Status: Never smoker alcohol intake: current alcohol intake frequency: a few times a month details: not while substance use type: does not use well-balanced diet: about half the time caffeine: No eating out: 1-3 times/week during the past year weight has: increased > 10 lbs what type of physical activity do you participate in: none gudelia/rastafari: None seatbelt use: always do you feel safe at home: Yes additional social history: -Aris Figueroa History 1 Elective abortions Hx Para 0 Spontaneous abortions Hx # Term Pregnancies Ectopic pregnancies Hx # Pregnancies Multiple births # of living children Visit Details Expected Delivery Route/Plan Labor Preferences- CB/BF classes: enc labor support person:Aris labor intervention preferences: [] pain management options preferred: open to epidural if requested cut cord/dad catch: yes : yes PP control planned: discussed discussed possible routes of delivery and associated risks: [] special requests: [] Plans Covid status: [] Flu vaccine: declines Tdap vaccine: given Rhogam: Na LARC form signed: yes movement and labor precautions reviewed. Problem list reviewed and updated with the most current plan of care details and appropriate orders placed. Relevant counseling for the gestational age provided. Continue routine care and follow up unless otherwise noted in visit notes/problem list details OB Flowsheet Initial Weight: 262 lb Date -?-?-?-?-?-?-?-?-?-?-?-?- EGA Weight BP Urine Prot -?-?-?-?-?-?-?-?-?-?-?-?- Glucose FHR FuHt Pres Dilation -?-?-?-?-?-?-?-?-?-?-?-?- Effaced St Visit Note 10/09/23 -?-?-?-?-?-?-?-?-?-?-?-?- 6w 0d 262 lb (+0 oz) 136/93 -?-?-?-?-?-?-?-?-?-?-?-?- 110 -?-?-?-?-?-?-?-?-?-?-?-?- SM- CRL 3 mm domonique l fu for formal dating US in office 11/01/23 -?-?-?-?-?-?-?-?-?-?-?-?- 9w 2d 262 lb 6 oz (+6 oz) 124/80 -?-?-?-?-?-?-?-?-?-?-?-?- 163 -?-?-?-?-?-?-?-?-?-?-?-?- KW- no vb/crampi ng. PRR. NIPT box today. CRL cons with last measurements 11/26/23 -?-?-?-?-?-?-?-?-?-?-?-?- 12w 6d 264 lb 8 oz (+2 lb 8 oz) 130/84 -?-?-?-?-?-?-?-?-?-?-?-?- 160 -?-?-?-?-?-?-?-?-?-?-?-?- MH-No VB. Nausea still persists. Promethazine sent. Rpt NIPT today 12/24/23 -?-?-?-?-?-?-?-?-?-?-?-?- 16w 6d 269 lb 8 oz (+7 lb 8 oz) 126/84 Negative -?-?-?-?-?-?-?-?-?-?-?-?- Negative 160 -?-?-?-?-?-?-?-?-?-?-?-?- JV- still having some nausea but is improved. difficulty sleeping at night. has anatomy ultrasound on 01/0701/25/24 -?-?-?-?-?-?-?-?-?-?-?-?- 21w 3d 274 lb (+12 lb) 132/86 -?-?-?-?-?-?-?-?-?-?-?-?- 155 -?-?-?-?-?-?-?-?-?-?-?-?- SM_ no vb lof go od fm no regular ctx afp drawn today 02/04/24 -?-?-?-?-?-?--?-?-?-?-?-?- 22w 6d 274 lb 6 oz (+12 lb 6 oz) 129/84 Negative -?-?-?-?-?-?-?-?-?-?-?-?- Negative 158 -?-?-?-?-?-?-?-?-?-?-?-?- -work in for h eadache that didn't respond to tylenol and elevated BP at work. Normal BP and urine in office. States feels dizzy and nauseous. Vomited X 1 and had diarrhea this am. Denies vision changes. Pre E labs. Will go home, rest, will take promethazine. MH-work in for headache that didn't respond to tylenol and elevated BP at work. Normal BP and urine in office. States feels dizzy and nauseous. Vomited X 1 and had diarrhea this am. Denies vision changes. Pre E labs. Will go home, rest, will take promethazine. No VB, CTX. Good FM 02/12/24 -?-?-?-?-?-?-?-?-?-?-?-?- 24w 0d 246 lb (-16 lb) 128/84 Negative -?-?-?-?-?-?-?-?-?-?-?-?- Negative 160 -?-?-?-?-?-?-?-?-?-?-?-?- -work in that she had 2 BP readings yesterday 160s/100 but did not call or retake BP and her mom encouraged to call today. Denies headache, vision changes. BP reading this AM 116/80. 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 Note for light duty, machine that allows more sitting. Pre E labs. Enc should call elevated BP reading after 20 min of rest. 02/22/24 -?-?-?-?-?-?-?-?-?-?-?-?- 25w 3d 280 lb 8 oz (+18 lb 8 oz) 111/79 Negative -?-?-?-?-?-?-?-?-?-?-?-?- Negative 145 -?-?-?-?-?-?-?-?-?-?-?-?- JV- bp cuff test and NOT accurate. pt has if anything low blood pressure. Plan to call us and be seen if has dizziness, visual changes and headaches. JV- bp cuff test and NOT acc urate. pt has if anything low blood pressure. Plan to call us and be seen if has dizziness, visual changes and headaches. has eye doctor appt next week. 03/03/24 -?-?-?-?-?-?-?-?-?-?-?-?- 26w 6d 282 lb (+20 lb) 134/88 124/82 Negative -?-?-?-?-?-?-?-?-?-?-?-?- Negative 147 28 -?-?-?-?-?-?-?-?-?-?-?-?- MH-No VB, LOF. G ood FM. Has eye appt next week. 28 wk labs. Is anemic and will start extra FE. Declines flu. LARC 03/19/24 -?-?-?-?-?-?-?-?-?-?-?-?- 29w 1d 281 lb (+19 lb) 125/84 Negative -?-?-?-?-?-?-?-?-?-?-?-?- Negative 150 30 -?-?-?-?-?-?-?-?-?-?-?-?- SM- no vb lof go od fm nor egular ctx 04/03/24 -?-?-?-?-?-?-?-?-?-?-?-?- 31w 2d 279 lb (+17 lb) 124/88 Negative -?-?-?-?-?-?-?-?-?-?-?-?- Negative 145 33 -?-?-?-?-?-?-?-?-?-?-?-?- KW- no vb/lof/ct x. good fm. pepcid for acid reflux. BS reviewed with SM. Metformin started. growth US scheduled. 04/08/24 -?-?-?-?-?-?-?-?-?-?-?-?- 32w 0d 284 lb 4 oz (+22 lb 4 oz) 118/85 Negative -?-?-?-?-?-?-?-?-?-?-?-?- Negative 150 36 -?-?-?-?-?-?-?-?-?-?-?-?- KW- no vb/lof/ct x. good fm. BBP and growth with MFM today. BS controlled. 04/11/24 -?-?-?-?-?-?-?-?-?-?-?-?- 32w 3d 282 lb 8 oz (+20 lb 8 oz) 122/82 Negative -?-?-?-?-?-?-?-?-?-?-?-?- Negative 140 -?-?-?-?-?-?-?-?-?-?-?-?- LC- nst only. gl ucose stable. 04/15/24 -?-?-?-?-?-?-?-?-?-?-?-?- 33w 0d 280 lb 4 oz (+18 lb 4 oz) 110/78 Trace -?-?-?-?-?-?-?-?-?-?-?-?- Negative 130 34 -?-?-?-?-?-?-?-?-?-?-?-?- JV- nst reactive . glucose log reviewed and normal. no lof, vaginal bleeding, or dec fm. RTO sunday for NST. 04/18/24 -?-?-?-?-?-?-?-?-?-?-?-?- 33w 3d 280 lb (+18 lb) 117/80 Negative -?-?-?-?-?-?-?-?-?-?-?-?- Negative 145 -?-?-?-?-?-?-?-?-?-?-?-?- LC-nst reactive. having diarrhea on metformin, declines change in medication today. glucose stable. 04/22/24 -?-?-?-?-?-?-?-?-?-?-?-?- 34w 0d 283 lb (+21 lb) 130/82 Negative -?-?-?-?-?-?-?-?-?-?-?-?- Negative 140 -?-?-?-?-?-?-?-?-?-?-?-?- MH-Reactive NST. NO VB, LOF. Good FM. Glucose readings nl. 04/29/24 -?-?-?-?-?-?-?-?-?-?-?-?- 35w 0d 283 lb (+21 lb) 126/82 -?-?-?-?-?-?-?-?-?-?-?-?- 135 -?-?-?-?-?-?-?-?-?-?-?-?- KW- no vb/lof/ct x. good fm. Growth US next week. 05/02/24 -?-?-?-?-?-?-?-?-?-?-?-?- 35w 3d 288 lb (+26 lb) 110/69 Negative -?-?-?-?-?-?-?-?-?-?-?-?- Negative 120 -?-?-?-?-?-?-?-?-?-?-?-?- LC- NST only. bs controlled. NST FHR Rate Baby A Baseline: 150 Variability:: Moderate Accelerations:: 15 x 15 Decelerations:: None NST Reactive:: Yes FHR Category:: Category I Uterine Activity:: irregular ROS Constitutional Constitutional: Reports headache(s); Denies change in weight, fatigue, fever(s), poor appetite or weakness Eyes Eyes: Reports blurry vision bilateral, change in vision and floaters; Denies seeing flashes or spots in vision ENT HEENT: Reports dizziness and headache(s); Denies loss taste/smell or sore throat Cardiovascular Cardiovascular: Denies chest pain, dizziness, dyspnea, irregular heart rhythm, lightheadedness, palpitations or rapid heart rate Respiratory/Chest Respiratory/Chest: Denies change in mental status, chest tightness, cough, dyspnea or breast pain Gastrointestinal Gastrointestinal: Denies anorexia, chewing difficulty, constipation, diarrhea or weight changes Genitourinary Genitourinary: Denies difficulty urinating, dysuria, flank pain, genital pain, urinary frequency or urinary urgency Musculoskeletal Musculoskeletal: Denies back pain, difficulty walking, extremity pain, joint pain, muscle cramps or muscle weakness Integumentary Integumentary: Denies lesions or unusual bruising Neurologic Neurologic: Denies abnormal movements, abnormal speech, dizziness, numbness, seizure-like activity, syncope or weakness Psychiatric Psychiatric: Denies behavioral changes, change in appetite, confusion, depression, homicidal ideation, suicidal ideation or suicidal thoughts Endocrine Endocrinology: Denies excessive sweating, polydipsia or polyuria Hematologic/Lymphatic Hematologic/Lymphatic: Denies anemia Allergic/Immunologic Allergic/Immunologic: Denies itchy eyes, lip swelling, throat swelling, tongue swelling or wheezing Vital Signs Vital Signs Vital Signs: 05/05/24 12:14 05/05/24 12:14 05/05/24 12:15 Pulse Rate 62 67 Blood Pressure 145/95 H BP Systolic 145 BP Diastolic 95 Pulse Ox 05/05/24 12:15 05/05/24 12:30 05/05/24 12:30 Pulse Rate 70 Blood Pressure 146/91 H BP Systolic 146 BP Diastolic 91 Pulse Ox 99 05/05/24 12:44 05/05/24 12:44 05/05/24 12:59 Pulse Rate 73 Blood Pressure 133/90 H 135/94 H BP Systolic 133 135 BP Diastolic 90 94 Pulse Ox 05/05/24 12:59 05/05/24 13:17 05/05/24 13:17 Pulse Rate 70 63 Blood Pressure 136/84 H BP Systolic 136 BP Diastolic 84 Pulse Ox 05/05/24 13:32 05/05/24 13:32 05/05/24 13:45 Pulse Rate 71 Blood Pressure 139/85 H 156/91 H BP Systolic 139 156 BP Diastolic 85 91 Pulse Ox 05/05/24 13:45 05/05/24 14:00 05/05/24 14:00 Pulse Rate 74 76 Blood Pressure 138/91 H BP Systolic 138 BP Diastolic 91 Pulse Ox Weight Weight: 288 lb 8 oz Body Mass Index (BMI) 42.5 Physical Exam Const alert, oriented x3 and no apparent distress General Appearance: cooperative Orientation / Consciousness: awake HEENT normocephalic Neck full ROM Lymph Lymphatic: no lymphadenopathy noted Chest inspection of chest normal Resp normal respiratory effort and normal air movement Effort and Inspection: able to speak in complete sentences and symmetric chest movement GI soft to palpation and non-tender Inspection: gravid Palpation: soft; Negative for tender external exam normal Back/Spine normal to inspection Extremity normal to inspection and full ROM Skin no rashes or lesions noted Psych mental status grossly normal Appearance: grossly normal Speech: normal speech Labs Labs Labs: Blood Type B POSITIVE Antibody Screen NEGATIVE Hct 35.0 % (37-47) L Hgb 10.9 g/dL (12.0-15.0) L Syphilis Total Ab Non-reactive Rubella IgG Antibody Reactive (Nonreactive) Hep Bs Antigen Non-Reactive (Nonreactive) Hepatitis C Antibody Non-Reactive (Nonreactive) Chlamydia DNA (CATHERINE) Negative (Negative) N.gonorrhoeae DNA (CATHERINE) Negative (Negative) HIV 1&2 Antibody Non-Reactive (Nonreactive) Glucose 1 Hr 50 gm 179 mg/dL (70-140) H Gest Glucose Tolerance MG/DL Miscellaneous Test Assessment & Plan (1) Preeclampsia, severe: (2) Obesity affecting : QUALIFIERS: Trimester: third trimester Obesity type affecting : unspecified obesity Qualified Code(s): O99.213 - Obesity complicating , third trimester COMMENT: BMI 38. encouraegd helahty weight gain recommend growth US 32 and 36. weekly nsts after 36 (3) Gestational diabetes: QUALIFIERS: Gestational diabetes mellitus control: oral hypoglycemic-controlled Trimester: third trimester Qualified Code(s): O24.415 - Gestational diabetes mellitus in , controlled by oral hypoglycemic drugs COMMENT: metformin started. 2x weekly NST and growth US. IOL at 39 weeks (4) Anemia in preg-unspec: QUALIFIERS: Trimester: second trimester Qualified Code(s): O99.012 - Anemia complicating , second trimester COMMENT: add FE (5) HPV test positive: COMMENT: nl pap with +HPV repeat Pap (6) IBS (irritable bowel syndrome): (7) Supervision of high-risk : QUALIFIERS: Trimester: third trimester Qualified Code(s): O09.93 - Supervision of high risk , unspecified, third trimester COMMENT: PRR,, MAGAYL 05/25/24,boy Aris (8) : QUALIFIERS: Weeks of gestation: 35 weeks Qualified Code(s): Z3A.35 - 35 weeks gestation of COMMENT: NIPT low risk, nl anatomy (f/u US for more views) (9) ASCUS of cervix with negative high risk HPV: COMMENT: repeat pap 1 year,2023 Pap nl +HPV (10) H/O LEEP: (11) CADY II (cervical intraepithelial neoplasia II): COMMENT: LEEP done 04/06/2020. Margins negative. ECC negative. Needs repeat cotesting in 1 year (12) Encounter for induction of labor: COMMENT: severe Pre e PLAN: Patient presents IOL, plan management for with cytotec/ choi bulb/pitocin/AROM. Pain management: plans epidural. GBS unknown-swab collected. Management of any complications: see problem list I have reviewed the [facility] and made any clinically relevant updates. Dr Charles aware of assessment and labs, agrees with admission and induction of labor at this time. Charges/Coding Multi Select Codes Urinary/Genital Urinary/Genital CPT Codes: No Charge
[2024-05-05] MEDS: Magnesium Sulfate 4gm/100mL 4 GM/100 ML IV.SOLN. IV (14:42)
[2024-05-05] MEDS: Lactated Ringers 1,000 ML 50 ML IV (14:45)
[2024-05-05] MEDS: Magnesium Sulfate 4gm/100mL 2 GM/50 ML IV.SOLN. IV (15:05)
[2024-05-05 15:12] LABS: Bedside Glucose 89 mg/dL (74-106)
[2024-05-05] MEDS: Magnesium Sulfate 20 GM/500 ML BAG IV (15:20)
[2024-05-05] MEDS: Labetalol 200 MG Tablet PO ×2 (16:32→23:08)
[2024-05-05] MEDS: miSOPROStol 25 MCG TABLET VAGINAL ×2 (16:59→21:14)
[2024-05-05 17:29] LABS: Bedside Glucose 125 mg/dL (74-106)
[2024-05-05 19:05] LABS: Bedside Glucose 138 mg/dL (74-106)
[2024-05-05 19:22] LABS: Syphilis Antibodies Non-reactive
[2024-05-05 20:46] LABS: Bedside Glucose 102 mg/dL (74-106)
[2024-05-05 21:53] LABS: Bedside Glucose 93 mg/dL (74-106)
[2024-05-05] MEDS: Acetaminophen 500 MG Tablet PO (23:08)
[2024-05-06] VITALS (105 sets, daily range): BP systolic 99–149; BP diastolic 55–93; PULSE 72–237; RESP 14–20; TEMP 36.2–37.3; O2SAT 79–100
[2024-05-06] MEDS: miSOPROStol 25 MCG TABLET VAGINAL ×2 (01:13→05:40)
[2024-05-06 01:14] LABS: Color, Urine Yellow (Yellow); Glucose, Dipstick Normal (Normal); Ketone-Dipstick 5 mg/dl (Negative); Leukocyte Esterase-Dipstick 25 /ul (Negative); Nitrite-Dipstick Negative (Negative); Occult Blood-Urine 10 /ul (Negative); Protein-Dipstick 15 mg/dl (Negative); Urine Clarity Cloudy (Clear); Urine Urobilinogen 1 mg/dl (Normal)
[2024-05-06] MEDS: Magnesium Sulfate 20 GM/500 ML BAG IV ×3 (01:15→22:23)
[2024-05-06 01:16] LABS: Urine Bilirubin Dipstick 1 mg/dL (Negative)
[2024-05-06 01:37] LABS: Bedside Glucose 94 mg/dL (74-106)
[2024-05-06 05:30] LABS: Bedside Glucose 96 mg/dL (74-106)
[2024-05-06] MEDS: 0.9% Normal Saline Single 100 ML IV.SOLN. INTRA-UTER (08:40)
[2024-05-06] MEDS: LACTATED RINGERS 500 ML 999 ML IV (09:50)
[2024-05-06] MEDS: Labetalol 200 MG Tablet PO (10:01)
[2024-05-06] MEDS: fentaNYL-bupivacaine (epidural) 100 ML BAG EPIDURAL ×2 (10:57→17:23)
[2024-05-06 11:44] LABS: Bedside Glucose 98 mg/dL (74-106)
[2024-05-06] MEDS: Acetaminophen 500 MG Tablet PO ×2 (13:08→23:33)
[2024-05-06] MEDS: Oxytocin 15 Units/NS 250ml 15 UNITS/250 ML IV.SOLN 2 UNITS IV (13:25)
--- NOTE | 2024-05-06 13:28 | PCM.PN.BLA ---
Progress Note arom clear fluid cat I tracing now, pit to start in 30 minutes
[2024-05-06 14:33] LABS: Bedside Glucose 87 mg/dL (74-106)
[2024-05-06] MEDS: Amnioinfusion- 0.9% NS 1,000 ML IV.SOLN. 1000 ML INTRA-UTER (17:58)
[2024-05-06 20:01] LABS: Bedside Glucose 84 mg/dL (74-106)
[2024-05-06 20:02] LABS: Bedside Glucose 89 mg/dL (74-106)
[2024-05-06 20:02] LABS: Bedside Glucose 66 mg/dL (74-106)
[2024-05-06 20:02] LABS: Bedside Glucose 82 mg/dL (74-106)
[2024-05-06 20:57] LABS: Bedside Glucose 85 mg/dL (74-106)
--- NOTE | 2024-05-06 22:55 | NURSING ---
pt reports seeing spots when she opens her eyes from resting and rates her headache 5-6/10. assessment is negative, no hyperreflexia noted or clonus. pt is provider notified and aware.
[2024-05-06 22:59] LABS: Bedside Glucose 96 mg/dL (74-106)
[2024-05-06 22:59] LABS: Bedside Glucose 76 mg/dL (74-106)
[2024-05-07] VITALS (131 sets, daily range): BP systolic 115–159; BP diastolic 56–85; PULSE 30–171; RESP 14–18; TEMP 36.2–37.7; O2SAT 80–100
--- NOTE | 2024-05-07 00:07 | EX.PCM.OBVAG ---
Assessment & Plan (1) Encounter for induction of labor: COMMENT: severe Pre e (2) Obesity affecting : QUALIFIERS: Obesity type affecting : unspecified obesity Trimester: third trimester Qualified Code(s): O99.213 - Obesity complicating , third trimester COMMENT: BMI 38. encouraegd helahty weight gain recommend growth US 32 and 36. weekly nsts after 36 (3) Preeclampsia, severe: (4) Gestational diabetes: QUALIFIERS: Gestational diabetes mellitus control: oral hypoglycemic-controlled Trimester: third trimester Qualified Code(s): O24.415 - Gestational diabetes mellitus in , controlled by oral hypoglycemic drugs COMMENT: metformin started. 2x weekly NST and growth US. IOL at 39 weeks (5) Anemia in preg-unspec: QUALIFIERS: Trimester: second trimester Qualified Code(s): O99.012 - Anemia complicating , second trimester COMMENT: add FE (6) HPV test positive: COMMENT: nl pap with +HPV repeat Pap (7) IBS (irritable bowel syndrome): (8) Supervision of high-risk : QUALIFIERS: Trimester: third trimester Qualified Code(s): O09.93 - Supervision of high risk , unspecified, third trimester COMMENT: PRR,, MAGALY 05/25/24,boy Aris (9) : QUALIFIERS: Weeks of gestation: 35 weeks Qualified Code(s): Z3A.35 - 35 weeks gestation of COMMENT: NIPT low risk, nl anatomy (f/u US for more views) (10) H/O LEEP: (11) CADY II (cervical intraepithelial neoplasia II): COMMENT: LEEP done 04/06/2020. Margins negative. ECC negative. Needs repeat cotesting in 1 year (12) ASCUS of cervix with negative high risk HPV: COMMENT: repeat pap 1 year Pap nl +HPV (13) Vaginal delivery: COMMENT: SM iol severe preeclampsia 36 boy sandra Maternal Data Information MAGALY Calculator Estimated Delivery Date Method Current WG Current Estimate 06/03/24 Ultrasound #1 36w 1d Other Estimates 05/25/24 LMP (Certain) 37w 3d Vaginal Delivery Maternal Presentation Maternal Presentation: see assessment and plan Vaginal Delivery Information Procedure Performed: Spontaneous Vaginal Delivery Surgeon/Practitioner: Wanda Diaz Date of Procedure: 05/07/24 Pre-Procedure Diagnosis: see assessment and plan Post-Procedure Diagnosis: same Type of anesthesia: Epidural Special Medications: hemabate cytotec Estimated Blood Loss: 400 Findings Description of procedure: Patient began pushing and delivered the head in the IDA presentation. The head was delivered atraumatically and a shoulder cord was noted. The anterior and posterior shoulders delivered without complication followed by the rest of the infant and the was placed on the maternal abdomen. Delayed cord clamping was employed for approximately 60 seconds. Cord was clamped and cut and gentle traction was applied to the cord and the placenta delivered spontaneously immediately following it was noted to be intact with three-vessel cord. The perineum and vagina were inspected and noted to have no laceration. mild atony encountered and treated with massage and medicaiton, EBL was 400. Patient and tolerated delivery well. patient had some chest tightness afterwards, normal vital signs and RRR CTAB on exam, ekg done and nl. symptoms resolved within a few minutes. repeeat cbc and cmp done, mag level 5.5 Presentation: Vertex Placental Delivery Description: Spontaneous Specimen collected: Yes Description of specimen(s) removed: placenta Melter Assistant physical design engineer: No Post Vaginal Deli Medications given after delivery: Other (pitocin) Complication Complications: No Multi Select Codes Urinary/Genital Urinary/Genital CPT Codes: 72474 Vaginal Delivery [facility]
--- NOTE | 2024-05-07 00:10 | DCINST_ITS ---
Discharge Instructions Diet Discharge Diet: No restrictions DC O2, CPAP, BIPAP needs Additional Home O2 Discharge instructions: No Dressing / Incision Discharge Activity: Return to Normal Activity, May Not Drive (while taking na rcotic pain medications.) and May Shower May resume sexual activity in: 4-6 weeks Dressing / Incision Call your doctor if your incision/area has: Continuous Slow Oozing, Sudden Increased Bleeding, Increased Pain/ Swelling, Increased Redness and Foul Smelling Discharge Follow Up Care Please Follow Up With: Wanda Diaz MD When: Call [phone] to make an appointment with your doctor in 6 weeks. If you had elevated blood pressure or 4th degree laceration, you will need to be seen in 2 weeks. Test Results: Test results from this visit will be discussed in further detail at your follow- up appointment, if applicable. Discharge Plan Admission Admit Date/Time: 05/05/24 14:50 Attending Provider: Tiara Hernandez Primary Care Provider: Jamil Ridley Discharge Orders/Prescriptions Prescriptions: No Action albuterol sulfate [ProAir HFA] 90 mcg/actuation HFA aerosol inhaler 2 puff inhalation Q6H PRN (Reason: post covid ) Patient Comments: has not used in a year PNV no.[id number] 180 mcg-35 mg- 25 mg-5 mg tablet,chewable 2 tab PO DAILY promethazine 12.5 mg tablet 12.5 mg PO Q6H PRN (Reason: nausea and vomiting) Qty: 60 2RF (DME) FreeStyle Kalpesh 2 Sensor Kit See Rx Instructions .Route Qty: 1 5RF Rx Instructions: As directed metformin 500 mg tablet 500 mg PO QDAY Qty: 30 4RF Patient Comments: pt stopped taking 2 weeks ago due to it causing her diarrhea Mag Glycinate 100 mg tablet 100 mg PO DAILY Patient Comments: pt unsure of doasge ferrous sulfate [Feosol] 325 mg (65 mg iron) tablet 325 mg PO DAILY ondansetron HCl 4 mg tablet 4 mg PO Q4H PRN (Reason: nausea and vomiting) Qty: 60 3RF (DME) blood-glucose meter Misc See Rx Instructions .ROUTE .MEDSUPPLY Qty: 1 0RF Rx Instructions: As directed- Test fasting and 2 hours after meals (DME) lancets Misc See Rx Instructions .ROUTE .MEDSUPPLY Qty: 200 5RF Rx Instructions: As directed-fasting & 2 hr post meals (DME) Blood Glucose Test Strip See Rx Instructions .ROUTE .MEDSUPPLY Qty: 120 5RF Rx Instructions: As directed-fasting & 2 hr post meals Referrals / Follow Up: Jamil Ridley DO [Primary Care Provider] - Disposition Disposition (needs filled in before D/C Order can be placed): Home, Self Care
[2024-05-07] MEDS: Oxytocin 15 Units/NS 250ml 15 UNITS/250 ML IV.SOLN 334 UNITS IV (00:35)
[2024-05-07] MEDS: Carboprost Tromethamine 250 MCG/ML Ampul IM (00:41)
[2024-05-07] MEDS: miSOPROStol 200 MCG Tablet 1000 MCG RC (00:41)
[2024-05-07 01:03] LABS: Bedside Glucose 81 mg/dL (74-106)
[2024-05-07] MEDS: Oxytocin 15 Units/NS 250ml 15 UNITS/250 ML IV.SOLN 83 UNITS IV (01:05)
[2024-05-07] MEDS: Loperamide 2 MG Capsule PO (01:18)
[2024-05-07 01:34] LABS: Bedside Glucose 95 mg/dL (74-106)
[2024-05-07 01:39] LABS: ALB/GLOB Ratio 0.5 RATIO (0.9-2.4); AST(SGOT) 77 U/L (15-37); Alanine Aminotransfer ALT/SGPT 138 U/L (13-56); Albumin, Serum 2.1 g/dL (3.2-5.0); Alkaline Phosphatase 182 U/L (45-117); Anion Gap 9 (5-15); BUN 10 mg/dL (7-18); BUN/Creat Ratio 12.4 RATIO (10-20); Calcium,Total 8.1 mg/dL (8.5-10.1); Chloride 108 mmol/L (98-107); EST Glomerular Filtration Rate 88 mL/min (>60); Est Glom Filt Rate - Afr Amer 107 mL/min (>60); Estimated Creatinine Clearance 148.09 ml/min; Globulin 3.9 g/dL (2.2-4.2); Glucose 102 mg/dL (74-106); Magnesium 5.5 mg/dL (1.6-2.6); Potassium 3.8 mmol/L (3.5-5.1); Sodium Level 135 mmol/L (136-145)
[2024-05-07 02:00] LABS: Absolute Lymphocyte Count 0.92 X10^3/uL (0.83-4.51); Absolute Neutrophil Count 15.7 X10^3/uL (2.0-7.7); Basophil# 0.02 X10^3/uL; Basophil% 0.1 % (0-1); Eosinophil# 0.01 X10^3/uL; Eosinophils% 0.1 % (0-5); Hematocrit 35.6 % (37-47); Hemoglobin 11.1 g/dL (12.0-15.0); Lymphocyte # 0.92 X10^3/ul (0.83-4.51); Lymphocyte % 5.2 % (19-41); Mean Corp Hgb Conc 31.2 g/dL (32-36); Mean Corpuscular Hgb 23.3 pg (27.0-32.0); Mean Corpuscular Volume 74.8 fL (81-99); Mean Platelet Vol. 10.5 fl (6.2-12.0); Monocyte# 1.12 X10^3/uL; Monocyte% 6.3 % (0-10); NRBC Flagged by Analyzer 0 % (0-5); Neutrophil % 87.9 % (47-70); Platelet Count 316 K/mm3 (150-450); RBC Distribution Width CV 16.9 % (11.6-14.6); RBC Distribution Width SD 45.1 fl (35.1-43.9); Red Blood Count 4.76 M/mm3 (4.2-5.4); White Blood Count 17.9 K/mm3 (4.4-11.0)
--- NOTE | 2024-05-07 02:06 | EKG12_ITS ---
Test Reason : CP Blood Pressure : */* mmHG Vent. Rate : 96 BPM Atrial Rate : 96 BPM P-R Int : 166 ms QRS Dur : 82 ms QT Int : 338 ms P-R-T Axes : 34 15 31 degrees QTcB Int : 427 ms Normal sinus rhythm Normal ECG When compared with ECG of 04-Apr-2021 18:58, No significant change was found Confirmed by ISABELA GOMEZ, RUEL ([id number]), metropolitan editor JOHN HARDING ([id number]) on 05/07/2024 2:15:29 PM Referred By: Tiara Hernandez Confirmed By: RUEL MAR MD
[2024-05-07] MEDS: Magnesium Sulfate 20 GM/500 ML BAG IV ×2 (09:10→20:16)
[2024-05-07 09:20] LABS: Bedside Glucose 101 mg/dL (74-106)
[2024-05-07] MEDS: Acetaminophen 500 MG Tablet 1000 MG PO (13:39)
[2024-05-08] VITALS (11 sets, daily range): BP systolic 106–131; BP diastolic 51–80; PULSE 62–156; RESP 16; TEMP 36.2–36.7; O2SAT 81–99
[2024-05-08] MEDS: Acetaminophen 500 MG Tablet 1000 MG PO ×2 (00:01→05:48)
[2024-05-08 05:58] LABS: Absolute Neutrophil Count 7.4 X10^3/uL (2.0-7.7); Basophil# 0.06 X10^3/uL; Basophil% 0.5 % (0-1); Eosinophil# 0.21 X10^3/uL; Eosinophils% 1.9 % (0-5); Hematocrit 30.6 % (37-47); Hemoglobin 9.7 g/dL (12.0-15.0); Mean Corp Hgb Conc 31.7 g/dL (32-36); Mean Corpuscular Hgb 23.8 pg (27.0-32.0); Mean Platelet Vol. 10.3 fl (6.2-12.0); Monocyte# 0.78 X10^3/uL; Monocyte% 7.1 % (0-10); NRBC Flagged by Analyzer 0 % (0-5); Neutrophil # 7.38 X10^3/uL (2.7-7.7); Neutrophil % 67.8 % (47-70); Platelet Count 285 K/mm3 (150-450); RBC Distribution Width CV 17.2 % (11.6-14.6); Red Blood Count 4.08 M/mm3 (4.2-5.4); White Blood Count 10.9 K/mm3 (4.4-11.0)
[2024-05-08 06:17] LABS: ALB/GLOB Ratio 0.5 RATIO (0.9-2.4); AST(SGOT) 44 U/L (15-37); Alanine Aminotransfer ALT/SGPT 107 U/L (13-56); Alkaline Phosphatase 139 U/L (45-117); Anion Gap 6 (5-15); BUN 7 mg/dL (7-18); BUN/Creat Ratio 11.3 RATIO (10-20); Calcium,Total 8.1 mg/dL (8.5-10.1); Chloride 112 mmol/L (98-107); Creatinine, Serum 0.62 mg/dL (0.55-1.02); EST Glomerular Filtration Rate 120 mL/min (>60); Est Glom Filt Rate - Afr Amer 145 mL/min (>60); Estimated Creatinine Clearance 191.08 ml/min; Globulin 3.9 g/dL (2.2-4.2); Glucose 81 mg/dL (74-106); Potassium 3.8 mmol/L (3.5-5.1); Protein, Total 5.9 g/dL (6.4-8.2); Sodium Level 139 mmol/L (136-145)
--- NOTE | 2024-05-08 07:12 | PCM.PN.OB ---
Subjective Subjective Patient doing well without complaints. Tolerating PO. Ambulating and voiding without difficulty. feeding well. Denies chest pain, shortness of breath, calf pain/swelling, fevers, chills, lightheadedness. Objective Data Objective Data Vital Signs: Vital Signs Temp Pulse Resp BP Pulse Ox O2 Del Method 97.2 F L 67 16 126/80 H 97 Room Air 05/08/24 04:15 05/08/24 04:16 05/08/24 04:15 05/08/24 04:16 05/08/24 04:15 05/08/24 04:15 Oxygen Delivery Method Room Air Weight: 288 lb 8 oz Body Mass Index (BMI) 42.5 Intake & Output: Intake and Output for Last 24 Hours 05/06/24 05/07/24 05/08/24 23:59 23:59 23:59 Intake Total 3607.43 / 3607.43 3730.8 / 3730.8 215 / 215 Output Total 1041 / 1041 2860 / 2860 Balance 2566.43 / 2566.43 870.8 / 870.8 215 / 215 Lab / Micro Data 05/08/24 05:36 05/08/24 05:36 Labs: Laboratory Results - last 24 hr 05/07/24 08:15: POC Glucose 101 05/08/24 05:36: WBC 10.9, RBC 4.08 L, Hgb 9.7 L, Hct 30.6 L, MCV 75.0 L, MCH 23.8 L, MCHC 31.7 L, RDW Std Deviation 46.0 H, RDW Coeff of Lance 17.2 H, Plt Count 285, MPV 10.3, Immature Gran % (Auto) 0.700, Neut % (Auto) 67.8, Lymph % (Auto) 22.0, [place] % (Auto) 7.1, Eos % (Auto) 1.9, Baso % (Auto) 0.5, Absolute Neuts (auto) 7.4, Absolute Lymphs (auto) 2.40, Nucleated RBC % 0, Sodium 139, Potassium 3.8, Chloride 112 H, Carbon Dioxide 21.0, Anion Gap 6, BUN 7, Creatinine 0.62, Estim Creat Clear Calc 191.08, Est GFR (MDRD) Af Amer 145, Est GFR (MDRD) Non-Af 120, BUN/Creatinine Ratio 11.3, Glucose 81, Calcium 8.1 L, Total Bilirubin 0.20, AST 44 H, ALT 107 H, Alkaline Phosphatase 139 H, Total Protein 5.9 L, Albumin 2.0 L, Globulin 3.9, Albumin/Globulin Ratio 0.5 L Micro: Microbiology 05/05/24 15:50 Genital vaginal Group B Streptococcus (PCR) - Final ROS Constitutional Constitutional: Reports systems reviewed and no addt'l complaints, except as documented Cardiovascular Cardiovascular: Reports systems reviewed and no addt'l complaints, except as documented Respiratory/Chest Respiratory/Chest: Reports systems reviewed and no addt'l complaints, except as documented Gastrointestinal Gastrointestinal: Reports systems reviewed and no addt'l complaints, except as documented Physical Exam Const alert, oriented x3 and no apparent distress HEENT Head and Scalp: atraumatic Resp normal respiratory effort GI soft to palpation and non-tender Bimanual Exam - Vag & Uterus: uterus non-tender Uterus Palpation: uterus fundus firm (below Umbilicus) Assessment & Plan (1) Preeclampsia, severe: (2) Vaginal delivery: COMMENT: SM iol severe preeclampsia 36 boy sandra PLAN: Plan s/p PPD # 1 1. routine post delivery care 2. breast feeding- support given 3. rh positive 4. rubella immune monitor bps, labs improving, possible dc home if bps [place]
[2024-05-08] MEDS: Naproxen 500 MG Tablet PO (07:22)
[2024-05-08] MEDS: 0.9% Saline Lock 10 ML Syringe IV (15:16)
[2024-05-09 02:00] VITALS: BP 117/64; PULSE 61; RESP 16; TEMP 36.7; O2SAT 97
[2024-05-09 02:12] VITALS: BP 117/64; PULSE 61
[2024-05-09 07:59] VITALS: BP 135/75; PULSE 60
[2024-05-09 08:00] VITALS: BP 135/75; PULSE 60; RESP 16; TEMP 36.5
--- NOTE | 2024-05-09 09:01 | PCM.PN.CNM ---
Subjective Subjective Patient doing well without complaints. Tolerating PO. Ambulating and voiding without difficulty. Feeding well. Denies chest pain, shortness of breath, calf pain/swelling, fevers, chills, lightheadedness. Objective Data Objective Data Vital Signs: Vital Signs Temp Pulse Resp BP Pulse Ox O2 Del Method 97.7 F L 60 16 135/75 H 97 Room Air 05/09/24 08:00 05/09/24 08:00 05/09/24 08:00 05/09/24 08:00 05/09/24 02:00 05/09/24 02:00 Oxygen Delivery Method Room Air Weight: 288 lb 8 oz Body Mass Index (BMI) 42.5 Intake & Output: Intake and Output for Last 24 Hours 05/07/24 05/08/24 05/09/24 23:59 23:59 23:59 Intake Total 3730.8 / 3730.8 215 / 215 Output Total 2860 / 2860 Balance 870.8 / 870.8 215 / 215 Lab / Micro Data 05/08/24 05:36 05/08/24 05:36 Micro: Microbiology 05/05/24 15:50 Genital vaginal Group B Streptococcus (PCR) - Final Physical Exam Const alert, oriented x3 and no apparent distress HEENT Head and Scalp: atraumatic Resp normal respiratory effort GI soft to palpation and non-tender Bimanual Exam - Vag & Uterus: uterus non-tender Uterus Palpation: uterus fundus firm (below Umbilicus) Assessment & Plan (1) Vaginal delivery: COMMENT: SM iol severe preeclampsia 36 boy sandra (2) Preeclampsia, severe: (3) Obesity affecting : QUALIFIERS: Trimester: third trimester Obesity type affecting : unspecified obesity Qualified Code(s): O99.213 - Obesity complicating , third trimester COMMENT: BMI 38. encouraegd helahty weight gain recommend growth US 32 and 36. weekly nsts after 36 (4) Gestational diabetes: QUALIFIERS: Gestational diabetes mellitus control: oral hypoglycemic-controlled Trimester: third trimester Qualified Code(s): O24.415 - Gestational diabetes mellitus in , controlled by oral hypoglycemic drugs COMMENT: metformin started. 2x weekly NST and growth US. IOL at 39 weeks PLAN: Plan s/p PPD #2 1. routine post delivery care 2. breast feeding- support given 3. rh positive 4. rubella immune 5. d/c home today BP stable, reviewed s/sx of PEC . f/u in office 1-2 weeks for nurse visit.
--- NOTE | 2024-05-09 09:04 | DS.PCM_ITS ---
Providers Date of Admission: 05/05/24 Primary Care Physician: Dr. Jamil Ridley, Reason For Visit: VAGINAL DELIVERY Diagnosis Discharge Diagnosis (1) Vaginal delivery: Status: Acute Code(s): O80 - Encounter for full-term uncomplicated delivery (2) Preeclampsia, severe: Status: Acute Code(s): O14.10 - Severe pre-eclampsia, unspecified trimester (3) Obesity affecting : Status: Acute Code(s): O99.210 - Obesity complicating , unspecified trimester Qualifiers: Trimester: third trimester Obesity type affecting : u nspecified obesity Qualified Code(s): O99.213 - Obesity complicating , third trimester (4) Gestational diabetes: Status: Acute Code(s): O24.419 - Gestational diabetes mellitus in , unspecified control Qualifiers: Gestational diabetes mellitus control: oral hypoglycemic-controlled T rimester: third trimester Qualified Code(s): O24.415 - Gestational diabetes mellitus in , controlled by oral hypoglycemic drugs Plan s/p PPD #2 1. routine post delivery care 2. breast feeding- support given 3. rh positive 4. rubella immune 5. d/c home today BP stable, reviewed s/sx of PEC . f/u in office 1-2 weeks for nurse visit. Medications at Discharge Home Medications albuterol sulfate 90 mcg/actuation aerosol inhaler (ProAir HFA) 2 puff inhalation Q6H PRN post covid 04/11/21 PNV 178-[id number] 180 mcg-om3 35 mg-dha 25 mg-epa 5 mg-fish oil chew tablet 2 tab PO DAILY 10/05/23 promethazine 12.5 mg tablet 12.5 mg PO Q6H PRN nausea and vomiting #60 tabs 11/26/23 ondansetron HCl 4 mg tablet 4 mg PO Q4H PRN nausea and vomiting #60 tabs 02/04/24 blood sugar diagnostic (Blood Glucose Test strips) #120 ea 03/06/24 blood-glucose meter #1 ea 03/06/24 lancets #200 ea 03/06/24 flash glucose sensor (FreeStyle Kalpesh 2 Sensor kit) #1 ea 03/19/24 metformin 500 mg tablet 500 mg PO QDAY GDM #30 tabs 04/03/24 ferrous sulfate 325 mg (65 mg iron) tablet (Feosol) 325 mg PO DAILY anemia 05/05/24 magnesium glycinate 100 mg (as glycinate) tablet (Mag Glycinate) 100 mg PO DAILY cramping 05/05/24 Hospital Course Operations None Procedures None Summary of Care Provided Minutes Spent on Discharge: 15 Hospital Course: presented for IOL for severe pre-eclampsia which resulted in . stable pp course. BP and labs stable. Physical Exam Const alert, oriented x3 and no apparent distress HEENT Head and Scalp: atraumatic Resp normal respiratory effort GI soft to palpation and non-tender Bimanual Exam - Vag & Uterus: uterus non-tender Uterus Palpation: uterus fundus firm (below Umbilicus) Weight / BMI Weight Weight: 288 lb 8 oz Body Mass Index (BMI) 42.5 ABG / Lab / Microbiology Data 05/08/24 05:36 05/08/24 05:36 Microbiology: Microbiology 05/05/24 15:50 Genital vaginal Group B Streptococcus (PCR) - Final D/C Instructions Discharge Diet: No restrictions May resume sexual activity in: 4-6 weeks Call your doctor if your incision/area has: Continuous Slow Oozing, Sudden Increased Bleeding, Increased Pain/ Swelling, Increased Redness and Foul Smelling Discharge DC O2, CPAP, BIPAP Needs Additional Home O2 Discharge instructions: No DC home with Oxygen: No Please Follow Up With: Wanda Diaz MD When: Call [phone] to make an appointment with your doctor in 6 weeks. If you had elevated blood pressure or 4th degree laceration, you will need to be seen in 2 weeks. Meaningful Use Info Meaningful Use Meaningful Use Diagnoses (Choose all that apply): None applicable Ischemic Stroke Statin Dosing Therapy Reference: STATIN DOSE THERAPY REFERENCE: * Patients > 75 years receive moderate or high dose statin therapy. * Patients 75 years or YOUNGER should receive HIGH intensity statin dose unless contraindicated. You will be required to document reason for non-treatment if statin daily dose does not meet guidelines. HIGH DOSE STATIN THERAPY DAILY Atorvastatin > than or = to 40 mg Rosuvastatin > than or = to 20 mg Amlodipine + Atorvastatin > than or = to 2.5/40 mg Ezetimibe + Simvastatin 10/80 mg Simvastatin 80mg Discharge Plan Admission Admit Date/Time: 05/05/24 14:50 Attending Provider: Wanda Diaz Primary Care Provider: Jamil Ridley Discharge Orders/Prescriptions Prescriptions: No Action albuterol sulfate [ProAir HFA] 90 mcg/actuation HFA aerosol inhaler 2 puff inhalation Q6H PRN (Reason: post covid ) Patient Comments: has not used in a year PNV no.[id number] 180 mcg-35 mg- 25 mg-5 mg tablet,chewable 2 tab PO DAILY promethazine 12.5 mg tablet 12.5 mg PO Q6H PRN (Reason: nausea and vomiting) Qty: 60 2RF (DME) FreeStyle Kalpesh 2 Sensor Kit See Rx Instructions .Route Qty: 1 5RF Rx Instructions: As directed metformin 500 mg tablet 500 mg PO QDAY Qty: 30 4RF Patient Comments: pt stopped taking 2 weeks ago due to it causing her diarrhea Mag Glycinate 100 mg tablet 100 mg PO DAILY Patient Comments: pt unsure of doasge ferrous sulfate [Feosol] 325 mg (65 mg iron) tablet 325 mg PO DAILY ondansetron HCl 4 mg tablet 4 mg PO Q4H PRN (Reason: nausea and vomiting) Qty: 60 3RF (DME) blood-glucose meter Misc See Rx Instructions .ROUTE .MEDSUPPLY Qty: 1 0RF Rx Instructions: As directed- Test fasting and 2 hours after meals (DME) lancets Misc See Rx Instructions .ROUTE .MEDSUPPLY Qty: 200 5RF Rx Instructions: As directed-fasting & 2 hr post meals (DME) Blood Glucose Test Strip See Rx Instructions .ROUTE .MEDSUPPLY Qty: 120 5RF Rx Instructions: As directed-fasting & 2 hr post meals Referrals / Follow Up: Jamil Ridley DO [Primary Care Provider] - Disposition Disposition (needs filled in before D/C Order can be placed): Home, Self Care
== END 2024-05-09 10:50 | disposition home or self-care (01) | DRG 807 ==
PROVIDERS: Admitting Provider Advanced Practice Midwife; PCP Student in an Organized Health Care Education/Training Program; Referring Provider Advanced Practice Midwife; Visit Provider Obstetrics & Gynecology
DX: O14.14 Severe pre-eclampsia complicating childbirth (principal); Z37.0 Single live birth; O24.415 Gestational diabetes mellitus in pregnancy, controlled by oral hypoglycemic drugs; D64.9 Anemia, unspecified; O99.214 Obesity complicating childbirth; O69.82X0 Labor and delivery complicated by other cord entanglement, without compression, not applicable or unspecified; O75.89 Other specified complications of labor and delivery; O99.893 Other specified diseases and conditions complicating puerperium; R07.89 Other chest pain; O99.02 Anemia complicating childbirth; Z3A.36 36 weeks gestation of pregnancy
CPT/HCPCS: 36415; 59025; 59050; 80053; 81002; 82565; 82570; 82962; 83735; 84156; 84450; 84460; 84550; 85025; 85027; 86780; 86850; 86900; 86901; 87653; 93005; 99221; J7030; J7120; A4216; G0378

== ENCOUNTER → 2024-05-14 | Outpatient (CLI) | payer BC, OTHER, SELFPAY ==
[2024-05-14 13:49] LABS: Absolute Neutrophil Count 5.9 X10^3/uL (2.0-7.7); Basophil# 0.06 X10^3/uL; Basophil% 0.7 % (0-1); Eosinophil# 0.26 X10^3/uL; Eosinophils% 3.1 % (0-5); Hematocrit 36.1 % (37-47); Hemoglobin 11.2 g/dL (12.0-15.0); Lymphocyte % 18.1 % (19-41); Mean Corpuscular Hgb 23.6 pg (27.0-32.0); Mean Platelet Vol. 9.7 fl (6.2-12.0); Monocyte# 0.54 X10^3/uL; Monocyte% 6.5 % (0-10); NRBC Flagged by Analyzer 0 % (0-5); Neutrophil # 5.86 X10^3/uL (2.7-7.7); Platelet Count 367 K/mm3 (150-450); RBC Distribution Width CV 16.2 % (11.6-14.6); RBC Distribution Width SD 44.1 fl (35.1-43.9); Red Blood Count 4.75 M/mm3 (4.2-5.4); White Blood Count 8.3 K/mm3 (4.4-11.0)
[2024-05-14 14:06] LABS: ALB/GLOB Ratio 0.6 RATIO (0.9-2.4); AST(SGOT) 14 U/L (15-37); Alanine Aminotransfer ALT/SGPT 49 U/L (13-56); Albumin, Serum 2.6 g/dL (3.2-5.0); Alkaline Phosphatase 130 U/L (45-117); Anion Gap 5 (5-15); BUN 8 mg/dL (7-18); BUN/Creat Ratio 10.5 RATIO (10-20); Calcium,Total 8.7 mg/dL (8.5-10.1); Chloride 110 mmol/L (98-107); Creatinine, Serum 0.76 mg/dL (0.55-1.02); EST Glomerular Filtration Rate 94 mL/min (>60); Est Glom Filt Rate - Afr Amer 113 mL/min (>60); Glucose 88 mg/dL (74-106); Potassium 4.1 mmol/L (3.5-5.1); Protein, Total 6.6 g/dL (6.4-8.2); Sodium Level 139 mmol/L (136-145)
== END | disposition home or self-care (01) ==
LOC: BWCLAB 13:35
PROVIDERS: PCP Student in an Organized Health Care Education/Training Program; Referring Provider Nurse Practitioner Women's Health; Visit Provider Nurse Practitioner Women's Health
DX: O16.1 Unspecified maternal hypertension, first trimester (principal); O14.10 Severe pre-eclampsia, unspecified trimester; Z3A.00 Weeks of gestation of pregnancy not specified
CPT/HCPCS: 36415; 80053; 85025

== ENCOUNTER → 2024-08-01 | Outpatient (CLI) | payer BC, OTHER, SELFPAY ==
--- NOTE | 2024-08-01 07:13 | US_ITS ---
PROCEDURE: ABDOMEN LIMITED REASON FOR EXAM: Right upper quadrant pain COMPARISON: None FINDINGS: Liver: Echogenic. 18.6 cm in length. Gallbladder: Tiny layering stones and/or sludge. No visualized wall thickening or pericholecystic fluid. Reportedly, sonographic Jacob's was negative. Common bile duct: Unremarkable, CBD measures 4 mm. Pancreas: Partially obscured by bowel gas. Visualized portions are sonographically unremarkable. Right kidney: Unremarkable. 10.5 cm in length. Other: No visualized free fluid. US/Abdomen Limited IMPRESSION: 1. Tiny layering gallbladder stones and/or sludge without evidence of acute cho lecystitis. No biliary dilatation. If unexplained symptoms persist, consider CT. 2. Suspect diffuse hepatic steatosis. Correlate for clinical and laboratory ev idence of chronic liver disease. 3. Additional description as above. Reading Location: [id number]
== END | disposition home or self-care (01) ==
PROVIDERS: PCP Nurse Practitioner Gerontology; Referring Provider Nurse Practitioner Gerontology; Visit Provider Nurse Practitioner Gerontology
DX: R10.11 Right upper quadrant pain (principal)
CPT/HCPCS: 76705

== ENCOUNTER → 2024-08-22 | Outpatient (CLI) | payer BC, OTHER, SELFPAY ==
--- NOTE | 2024-08-22 06:39 | ECHOCS_ITS ---
Reason For Study Reason For Study: PALPITATIONS Procedure This was a 2D Doppler, Color Flow transthoracic echocardiogram. The study was technically difficult. Due to diminshed acccoustic apical windows. Contrast injection was performed. Exam performed in department. Left Ventricle Normal LV size. Left ventricular systolic function is normal. The left ventricular ejection fraction is 55 %. No regional wall motion abnormalities noted. Right Ventricle Normal RV size. Normal systolic function. Atria Normal left atrium. Normal right atrium. Mitral Valve Normal mitral valve. Tricuspid Valve Normal tricuspid valve. Mild tricuspid valve insufficiency. Pulmonic Valve Normal pulmonic valve. Great Vessels Normal aortic root. The pulmonary artery is normal size. Normal inferior vena cava. Pericardium/Pleural No pericardial effusion. Medication 22 gauge I.V. with prn adaptor inserted into right arm. Diluted definity 1.5ml given slow IV push to enhance endocardial definition. MMode/2D Measurements & Calculations LVIDd: 4.6 cm IVSd: 0.84 cm Ao root diam: 3.3 cm LVIDs: 2.9 cm LVPWd: 0.94 cm RVDd: 2.8 cm FS: 37.4 % LAV(MOD-bp): 45.4 ml LVAd ap4: 32.7 cm2 SV(MOD-sp4): 58.3 ml LAV(MOD-bp) Indexed: 19.4 ml/m2 LVLd ap4: 8.7 cm SI(MOD-sp4): 24.9 ml/m2 LAV(MOD-sp2): 40.8 ml EDV(MOD-sp4): 99.8 ml LAV(MOD-sp4): 45.8 ml EDV(sp4-el): 104.7 ml LVAs ap4: 19.4 cm2 LVLs ap4: 7.6 cm ESV(MOD-sp4): 41.5 ml ESV(sp4-el): 42.1 ml EF(MOD-sp4): 58.4 % EF(sp4-el): 59.8 % SV(sp4-el): 62.6 ml LA A4 area: 17.1 cm2 LA dimension(2D): 4.0 cm RA A4 area: 13.3 cm2 TAPSE: 2.7 cm Time Measurements MV dec time: 0.14 sec Doppler Measurements & Calculations MV E max vazquez: 108.3 cm/sec Lat Peak E' Vazquez: 15.7 cm/sec Med Peak E' Vazquez: 14.6 cm/sec MV A max vazquez: 55.5 cm/sec E/E' lat: 6.9 E/E' med: 7.4 MV E/A: 2.0 MV V2 max: 116.5 cm/sec MV P1/2t max vazquez: 116.5 cm/sec Ao V2 max: 108.4 cm/sec MV max P.4 mmHg MV P1/2t: 49.1 msec Ao max P.7 mmHg MV V2 mean: 47.7 cm/sec Ao V2 mean: 75.5 cm/sec MV mean P.2 mmHg MV dec slope: 695.0 cm/sec2 Ao mean P.6 mmHg MV V2 VTI: 28.2 cm MVA(P1/2t): 4.5 cm2 Ao V2 VTI: 24.3 cm AV (velocity ratio): 0.84 LV V1 max: 99.6 cm/sec PA V2 max: 80.5 cm/sec TR max vazquez: 222.2 cm/sec LV V1 max P.0 mmHg TR max P.7 mmHg LV V1 mean P.9 mmHg LV V1 mean: 63.6 cm/sec LV V1 VTI: 20.4 cm ECHO/Echo Complete W/ Contrast Interpretation Summary Normal LV size. Left ventricular systolic function is normal. The left ventricular ejection fraction is 55 %. Contrast injection was performed. Ordering Physician: Rico Garcia Referring Physician: Rico Garcia Performed By: Brianne Latham, CHUNG, RVT
== END | disposition home or self-care (01) ==
LOC: CVS 06:38
PROVIDERS: PCP Nurse Practitioner Gerontology; Referring Provider Nurse Practitioner Gerontology; Visit Provider Nurse Practitioner Gerontology
DX: R00.2 Palpitations (principal); I51.7 Cardiomegaly; Z82.49 Family history of ischemic heart disease and other diseases of the circulatory system
CPT/HCPCS: 93306; Q9957; A4216; C8929

== ENCOUNTER → 2024-08-29 | Outpatient (CLI) | payer OTHER, SELFPAY ==
[2024-08-29 17:36] LABS: Absolute Lymphocyte Count 2.51 X10^3/uL (0.83-4.51); Absolute Neutrophil Count 7.1 X10^3/uL (2.0-7.7); Basophil# 0.07 X10^3/uL; Basophil% 0.7 % (0-1); Eosinophil# 0.29 X10^3/uL; Eosinophils% 2.7 % (0-5); Hematocrit 37.4 % (37-47); Hemoglobin 11.6 g/dL (12.0-15.0); Lymphocyte # 2.51 X10^3/ul (0.83-4.51); Lymphocyte % 23.7 % (19-41); Mean Corpuscular Hgb 22.9 pg (27.0-32.0); Mean Corpuscular Volume 73.8 fL (81-99); Mean Platelet Vol. 9.3 fl (6.2-12.0); Monocyte# 0.57 X10^3/uL; Monocyte% 5.4 % (0-10); NRBC Flagged by Analyzer 0 % (0-5); Neutrophil # 7.05 X10^3/uL (2.7-7.7); Neutrophil % 66.6 % (47-70); Platelet Count 431 K/mm3 (150-450); RBC Distribution Width SD 44.1 fl (35.1-43.9); RET-HE 25.5 pg (30-35); Red Blood Count 5.07 M/mm3 (4.2-5.4); Reticulocyte Count 1.73 % (0.5-1.5); White Blood Count 10.6 K/mm3 (4.4-11.0)
[2024-08-29 17:47] LABS: Prothrombin Time (Protime)PT. 13.4 SECONDS (11.7-14.9)
[2024-08-29 18:05] LABS: Erythrocyte Sedimentation Rate 51 mm/hr (0-30)
[2024-08-29 18:09] LABS: ALB/GLOB Ratio 1.2 RATIO (0.9-2.4); AST(SGOT) 22 U/L (<=31); Alanine Aminotransfer ALT/SGPT 29 U/L (<=34); Albumin, Serum 4.2 g/dL (3.5-5.0); Alkaline Phosphatase 107 U/L (35-104); Anion Gap 15 (5-15); BUN 11 mg/dL (4-19); BUN/Creat Ratio 13.8 RATIO (10-20); Calcium,Total 9.5 mg/dL (7.6-11.0); Carbon Dioxide 21.2 mmol/L (21.0-32.0); Chloride 103 mmol/L (98-108); Cholesterol 187 mg/dL (<=200); EST Glomerular Filtration Rate 101 (>60); Ferritin 28 ng/mL (22-378); Globulin 3.7 g/dL (2.2-4.2); Glucose 93 mg/dL (70-99); High Density Lipoprotein 36 mg/dL; Low Density Lipoprotein Calc. 118 mg/dL; Potassium 3.6 mmol/L (3.3-5.1); Protein, Total 7.9 g/dL (5.9-8.4); Sodium Level 139 mmol/L (133-145); Total Bilirubin 0.39 mg/dL (0.00-1.30); Triglycerides 166 mg/dL; Very Low Density Lipoprotein 33 mg/dL (5-40); cholesterol:hdl ratio screen 5.25
[2024-08-29 18:10] LABS: Hemoglobin A1c 5.7 % (<=5.6)
[2024-08-29 19:36] LABS: Iron 48 ug/dL (50-170); LDH 176 U/L (84-246)
== END | disposition home or self-care (01) ==
PROVIDERS: PCP Nurse Practitioner Gerontology; Referring Provider Internal Medicine Gastroenterology; Visit Provider Internal Medicine Gastroenterology
DX: R16.0 Hepatomegaly, not elsewhere classified (principal)
CPT/HCPCS: 36415; 80053; 80061; 80074; 82652; 82728; 82784; 82785; 82787; 83010; 83036; 83516; 83540; 83615; 84165; 84443; 85025; 85045; 85610; 85652; 86003; 86005; 86037; 86140; 86255; 86334

== ENCOUNTER → 2024-09-22 | Outpatient (CLI) | payer OTHER, SELFPAY ==
--- NOTE | 2024-09-22 09:50 | US_ITS ---
PROCEDURE: ELASTOGRAPHY PARENCHYMA/ORGAN, 09/22/2024 REASON FOR EXAM: ROSS COMPARISON: None TECHNIQUE: Elastography was performed for non-invasive assessment of liver tissue stiffness utilizing a [employer] S-shear wave imaging unit. FINDINGS: Number of measurements: 15 measurements across 3 regions, 5 measurements per region. US probe: CA1-7A. EQI median: 10.6 kPa EQI median velocity: 1.83 m/s IQR/Med: 9.8-25.6% (kPa) and 4.1-13.7% (m/s). If the IQR/Med is IQR/median >30% (for kPa) or >15% in m/s, the variance in the measurements is a large and the accuracy of the measurement may be in question. US/Elastography Parenchyma/Organ IMPRESSION: 1. Liver stiffness is 10.6 kPa. Per the below 2020 SRU criteria, this is sugges tive of compensated advanced chronic liver disease but requires further testing for confirmation. 2. Additional description as above. Assessment is per the Update to the SRU Liver Elastography Consensus Statement (2020) Note that the above assessment of liver fibrosis is vendor-neutral and intended for use in fibrosis related to viral etiologies and non-alcoholic fatty-liver disease (NAFLD); in causes other than viral hepat itis and NAFLD, the cutoff values are currently not well established. In some patients with NAFLD, the cutoff values for cACLD may be lower (7-9 kPa). Note also that in the setting of elevated LFTs, nonfasting or vascular congestion, the stage of lifer fibrosis may be overestimated. Previous SRU reference values: <1.37 m/s (5.7kPa): No to mild fibrosis 1.37 m/s - 2.2 m/s: Moderate to severe fibrosis >2.2 m/s (15kPa): Significant fibrosis / cirrhosis Reading Location: [id number]
--- NOTE | 2024-09-22 09:50 | NM_ITS ---
PROCEDURE: GASTRIC EMPTYING STUDY 09/22/2024 REASON FOR EXAM: BLOATING COMPARISON: None. TECHNIQUE: The patient ingested a standard meal of cooked egg whites mixed with , toasted white bread, jelly, and water. Total time taken to ingest the meal was minutes. Approximately % of the meal was ingested. There was no vomiting postprandially. Anterior and posterior planar images of the upper abdomen were obtained for 1 minute immediately following the meal at 1h, 2h and 4h if more than 10% of the activity persisted within the stomach. Regions of interest were drawn, and a geometric mean was used to calculate a [id number]. Fasting Blood Glucose (if diabetic): mg/dL. Medications taken in the past 24 hours that may affect gastric emptying: None RADIOPHARMACEUTICAL: 1.2 mCi of technetium 99 M sulfur colloid FINDINGS: Percent activity remaining in stomach: 1 hour 48 % (normal 37-90%) 2 hours: % (normal 30-60%) 4 hours: % (normal 0-10%) NE/Gastric Emptying Study IMPRESSION: Normal gastric emptying. Reading Location: [id number]
== END | disposition home or self-care (01) ==
PROVIDERS: PCP Nurse Practitioner Gerontology; Referring Provider Internal Medicine Gastroenterology; Visit Provider Internal Medicine Gastroenterology
DX: K76.0 Fatty (change of) liver, not elsewhere classified (principal); R16.0 Hepatomegaly, not elsewhere classified
CPT/HCPCS: 76981; 78264; A9541

== ENCOUNTER → 2024-09-24 | Outpatient (CLI) | payer OTHER, SELFPAY ==
--- NOTE | 2024-09-24 17:44 | CT_ITS ---
PROCEDURE: ABDOMEN/PELVIS WITH CONTRAST (procedure code [id number]), 09/24/2024 REASON FOR EXAM: LOWER GI BLEEDING TECHNIQUE: CT abdomen and pelvis was performed with IV contrast. Multiplanar reformats were generated. IV contrast: Isovue 370 VOLUME: 100mL Oral contrast: Gastrografin; dose information not provided. RADIATION DOSE SUMMARY: CTDlvol: 9.97+ 23.87 mGy DLP: 1341.71 mGycm One or more dose reduction techniques were used (e.g., Automated exposure control, adjustment of the mA and/or kV according to patient size, use of iterative reconstruction technique). COMPARISON: 08/01/2024 FINDINGS: Lung bases: Unremarkable. Liver: Borderline hepatomegaly. Diffuse hepatic steatosis. Suspect focal hepatic steatosis along the anterior falciform, normal variant. Spleen: Mild splenomegaly, 13.2 cm coronal. Gallbladder: Unremarkable. Pancreas: Unremarkable. Adrenals: Unremarkable. Kidneys: Unremarkable. Bowel: Unremarkable. Appendix not identified. No definite inflammation in the region. Lymph nodes: Unremarkable. Vasculature: Unremarkable. Peritoneum: Unremarkable. Bladder: Underdistended and suboptimally evaluated, grossly unremarkable. Reproductive Organs: 4.1 x 3.6 cm RIGHT adnexal cyst. Body Wall: Tiny fat containing umbilical hernia.. Bones: Prominent posterior central disc protrusion at L4-L5 with at least moderate spinal canal stenosis not well evaluated by CT. Degenerative disc disease also present at L5-S1. CT/Abdomen/Pelvis WITH Contrast IMPRESSION: 1. No acute findings noting that the appendix is not identified. No definite i nflammation in the region. 2. 4.1 cm RIGHT adnexal cyst, incompletely characterized by CT, possible functi onal cyst. Recommend follow-up pelvic ultrasound in 4-6 weeks. 3. Borderline hepatomegaly and diffuse hepatic steatosis with mild splenomegaly . Correlate for clinical and laboratory evidence of chronic liver disease. 4. Additional description as above. Reading Location: [id number]
== END | disposition home or self-care (01) ==
PROVIDERS: PCP Nurse Practitioner Gerontology; Referring Provider Internal Medicine Gastroenterology; Visit Provider Internal Medicine Gastroenterology
DX: R16.0 Hepatomegaly, not elsewhere classified (principal)
CPT/HCPCS: 74177; Q9967; A4216

== ENCOUNTER → 2024-10-02 | Outpatient (CLI) | payer OTHER, SELFPAY ==
[2024-10-02 10:49] LABS: ALB/GLOB Ratio 1.2 RATIO (0.9-2.4); AST(SGOT) 17 U/L (<=31); Alanine Aminotransfer ALT/SGPT 17 U/L (<=34); Alkaline Phosphatase 103 U/L (35-104); Anion Gap 12 (5-15); BUN 9 mg/dL (4-19); BUN/Creat Ratio 12.5 RATIO (10-20); Calcium,Total 9.1 mg/dL (7.6-11.0); Carbon Dioxide 20.8 mmol/L (21.0-32.0); Chloride 105 mmol/L (98-108); Creatinine, Serum 0.74 mg/dL (0.70-1.20); EST Glomerular Filtration Rate 111 (>60); Globulin 3.4 g/dL (2.2-4.2); Glucose 105 mg/dL (70-99); Potassium 4.1 mmol/L (3.3-5.1); Protein, Total 7.3 g/dL (5.9-8.4); Sodium Level 138 mmol/L (133-145); Total Bilirubin 0.28 mg/dL (0.00-1.30)
[2024-10-02 10:52] LABS: Rheumatoid Factor < 10.0 IU/mL (<15)
[2024-10-03 14:08] LABS: CCP IgG Antibodies 7 units (0-19)
== END | disposition home or self-care (01) ==
LOC: LAB 08:53
PROVIDERS: PCP Nurse Practitioner Gerontology; Referring Provider Internal Medicine Gastroenterology; Visit Provider Internal Medicine Gastroenterology
DX: R16.0 Hepatomegaly, not elsewhere classified (principal)
CPT/HCPCS: 36415; 80053; 86200; 86431

== ENCOUNTER → 2024-10-07 | Outpatient (CLI) | payer OTHER, SELFPAY ==
[2024-10-14 16:08] LABS: HPV APTIMA, High Risk Negative (Negative)
== END | disposition home or self-care (01) ==
LOC: LABSPEC 15:46
PROVIDERS: PCP Nurse Practitioner Gerontology; Referring Provider Advanced Practice Midwife; Visit Provider Advanced Practice Midwife
DX: Z12.4 Encounter for screening for malignant neoplasm of cervix (principal)
CPT/HCPCS: 87624; 88175; G0145

== ENCOUNTER → 2024-10-10 | Outpatient (CLI) | payer OTHER, SELFPAY ==
--- NOTE | 2024-10-10 16:10 | US_ITS ---
PROCEDURE: PELVIC W/ TRANSVAGINAL 10/10/2024 REASON FOR EXAM: RIGHT OVARIAN CYST TECHNIQUE: Transabdominal and transvaginal pelvic ultrasound COMPARISON: Preceding CT abdomen and pelvis 09/24/2024 FINDINGS: Transabdominal and transvaginal imaging. Bladder volume 35 cc limits the acoustic window for transabdominal imaging. The uterus measures 9.6 x 5 x 3.4 cm and appears within limits. 9 mm endometrial stripe appears homogeneous. A few incidental appearing nabothian cysts seen. The right ovary measures 4.4 x 4 x 3.4 cm and contains a mostly simple appearing cyst measuring 3.9 x 4 x 3 cm with possible small daughter cyst or small septation. By previous CT reported at 4.1 cm. There appears to be vascular flow to the right ovary. The left ovary measures 2 x 1.7 x 1.7 cm and appears within limits. There appears to be vascular flow to the left ovary. No evidence of adnexal mass. No free fluid seen. US/Pelvic w/ Transvaginal IMPRESSION: Since the prior CT of 09/24/2024 there is still a cystic lesion right ovary aga in measuring 4 cm. May repeat the pelvic ultrasound in 1-2 menstrual cycles. Reading Location: [id number]
== END | disposition home or self-care (01) ==
LOC: US 16:08
PROVIDERS: PCP Nurse Practitioner Gerontology; Referring Provider Advanced Practice Midwife; Visit Provider Advanced Practice Midwife
DX: N83.201 Unspecified ovarian cyst, right side (principal)
CPT/HCPCS: 76830; 76856

== ENCOUNTER → 2024-10-13 | Outpatient (CLI) | payer OTHER, SELFPAY ==
[2024-10-13 17:36] LABS: Estradiol 47.8 pg/mL; Follicle Stimulating Hormone 5.6 mIU/mL
== END | disposition home or self-care (01) ==
PROVIDERS: Referring Provider Obstetrics & Gynecology; Visit Provider Obstetrics & Gynecology
DX: N83.201 Unspecified ovarian cyst, right side (principal)
CPT/HCPCS: 36415; 82627; 82670; 83001; 83498; 84146; 84402; 84403; 82626

== ENCOUNTER 2024-10-28 08:21 | Day surgery (SDC) | payer OTHER, SELFPAY ==
--- NOTE | 2024-10-17 10:25 | PAT.ANESEVAL ---
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 When Was Last Pacemaker Check QUESTION #4 FULL TEXT: You/Your Family Experience fever (hyperthermia) with Anesthesia Last Oral Intake Last Oral intake: Last Oral Intake NPO since Meds taken in AM with sips of water? Meds patient instructed to take am of surgery PONV PONV - teacher counselor: PONV - teacher counselor Female Yes 10/17/24 09:13 HX of Motion Sickness No 10/17/24 09:13 HX of N/V After Surgery No 10/17/24 09:13 Non-Smoker Yes 10/17/24 09:13 Duration of Surgery greater Yes 10/17/24 09:13 than 60 minutes Number of Risk Factors 3 10/17/24 09:13 PONV Score Moderate Risk 10/17/24 09:13 Height & Weight Height & Weight: Anesthesia: Height & Weight Height 5 ft 9 in 10/13/24 15:24 Respiratory Assessment Respiratory Assessment - teacher counselor: Respiratory Tract Infection Hx - teacher counselor Hx Respiratory Tract Infection No 10/17/24 09:13 STOP Sleep Apnea STOP Sleep Apnea - teacher counselor: STOP Sleep Apnea - teacher counselor Hx Hypertension Yes: PER PT, CONTROLLED ON 10/17/24 09:13 MEDS Hx Sleep Apnea No 10/17/24 09:13 CPAP BIPAP Do you snore loudly (louder No 10/17/24 09:13 than talking or can be heard Do you often feel tired/ No 10/17/24 09:13 fatigued/ sleepy during daytime? Has anyone observed you stop No 10/17/24 09:13 breathing during sleep? STOP Results Negative 10/17/24 09:13 QUESTION #5 FULL TEXT : Do you snore loudly (louder than talking or can be heard through closed doors)? 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 Specify any problems Hx of Preganancy in last 3 No 10/17/24 09:13 Months Nurse Filling Out Transfusion MGRIFFITH 10/17/24 09:13 & Questions: Date: 10/17/24 10/17/24 09:13 Time: 09:15 10/17/24 09:13 Patient unable to answer at this time (ie. confused, unrespo /Reproduction History /Reproductive History - teacher counselor: /Reproductive Hx- teacher counselor Hx Now No 10/17/24 09:13 Gestational Age (in weeks): EDC: Hx Hx Para Hx Section SAB No 10/17/24 09:13 PFSH Medical History Wears glasses Anxiety Anemia Restless legs ROSS (nonalcoholic steatohepatitis) Dietary restriction History of IBS Shortness of breath on exertion Non-smoker History of echocardiogram History of Holter monitoring Contraceptive management Vaginal delivery Gestational diabetes Pre-eclampsia Preeclampsia, severe Obesity affecting Gestational diabetes Anemia in preg-unspec HPV test positive Trauma Supervision of high-risk GERD (gastroesophageal reflux disease) Epigastric abdominal pain ASCUS of cervix with negative high risk HPV Post-op bleeding HTN (hypertension) Home Medications ?Medication ?Instructions ?Recorded ?Last Taken ?Type albuterol sulfate 90 mcg/actuation 2 puff inhalation Q6H PRN post 04/11/21 Unknown History aerosol inhaler (ProAir HFA) covid ferrous sulfate 325 mg (65 mg 65 mg PO DAILY Low iron 07/24/24 Unknown History iron) tablet hydrochlorothiazide 25 mg tablet 25 mg PO DAILY High blood pressure 07/24/24 Unknown History amlodipine 10 mg tablet 10 mg PO QDAY 08/29/24 Unknown History resmetirom 100 mg tablet 100 mg PO QDAY #30 tabs 10/10/24 Unknown Rx (Rezdiffra) hyoscyamine sulfate 0.125 mg tablet 0.125 mg PO BID-QID PRN dyspepsia 10/13/24 Unknown Rx #60 tabs medroxyprogesterone 10 mg tablet 10 mg PO QDAY #10 tabs 10/16/24 Unknown Rx (Provera) biotin 10,000 mcg chewable tablet mcg PO DAILY 10/17/24 Unknown History (Hair, Skin and Nails (biotin)) Allergy/AdvReac Type Severity Reaction Status Date / Time latex Allergy Hives Verified 10/17/24 10:08 dicyclomine (From Bentyl) AdvReac Other Verified 10/17/24 10:08 Family History Unknown No problems noted. Father Diabetes Grandmother Diabetes paternal Heart disease paternal Hypertension paternal Surgical History History of ankle surgery S/P LEEP Status post colposcopy History of tonsillectomy History of esophagogastroduodenoscopy (EGD) History of colonoscopy Social History adopted: No household members: spouse number of children: 0 current occupational status: employed current occupation: [employer] pets and animals: Yes pets and animals: other details: bearded stiven history of recent travel: No sexually active: Yes Smoking Status: Never smoker alcohol intake: current alcohol intake frequency: a few times a month details: not while substance use type: does not use well-balanced diet: about half the time caffeine: No eating out: 1-3 times/week during the past year weight has: increased > 10 lbs what type of physical activity do you participate in: none gudelia/lutheran: None seatbelt use: always do you feel safe at home: Yes additional social history: -Aris Garcia Audit: Pertinent Findings Pertinent Findings EKG Perinent findings: 05/07/2024. Normal sinus rhythm 96 bpm. Normal EKG. Echo (EF%) pertinent findings: 08/22/2024. EF 55%. Normal size and function. Recommendation Anesthesia Recommendation Anesthesia recommendation: OPTIMIZED for anesthesia
[2024-10-17 11:32] LABS: Hemoglobin 12.7 g/dL (12.0-15.0); Mean Corpuscular Hgb 22.6 pg (27.0-32.0); Mean Corpuscular Volume 73.1 fL (81-99); Mean Platelet Vol. 9.4 fl (6.2-12.0); Platelet Count 462 K/mm3 (150-450); RBC Distribution Width CV 15.8 % (11.6-14.6); RBC Distribution Width SD 40.9 fl (35.1-43.9); Red Blood Count 5.61 M/mm3 (4.2-5.4)
[2024-10-17 11:39] LABS: Prothrombin Time (Protime)PT. 13.3 SECONDS (11.7-14.9)
[2024-10-17 11:41] LABS: Partial Thromboplast Time 34.9 Seconds (24.1-36.2)
[2024-10-17 12:12] LABS: Anion Gap 15 (5-15); BUN 11 mg/dL (4-19); BUN/Creat Ratio 13.9 RATIO (10-20); Calcium,Total 9.8 mg/dL (7.6-11.0); Carbon Dioxide 21.4 mmol/L (21.0-32.0); Chloride 101 mmol/L (98-108); Creatinine, Serum 0.82 mg/dL (0.70-1.20); EST Glomerular Filtration Rate 98 (>60); Glucose 109 mg/dL (70-99); Potassium 3.4 mmol/L (3.3-5.1); Sodium Level 137 mmol/L (133-145)
[2024-10-28] VITALS (10 sets, daily range): BP systolic 109–137; BP diastolic 71–93; PULSE 63–93; RESP 14–18; TEMP 36.1–36.8; O2SAT 95–100; BMI 38.7
--- NOTE | 2024-10-28 01:42 | HP.PCM_ITS ---
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: No Is patient in pain?: No Allergies latex Allergy (Verified 10/17/24 10:08) Hivesdicyclomine (From Bentyl) Adverse Reaction (Verified 10/17/24 10:08) Other Medications ?Medication ?Instructions ?Recorded ?Confirmed ?Type albuterol sulfate 90 mcg/actuation 2 puff inhalation Q6H PRN post 04/11/21 10/17/24 History aerosol inhaler (ProAir HFA) covid ferrous sulfate 325 mg (65 mg 65 mg PO DAILY Low iron 07/24/24 5 History iron) tablet hydrochlorothiazide 25 mg tablet 25 mg PO DAILY High blood pressure 07/2410/17/24 History amlodipine 10 mg tablet 10 mg PO QDAY 08/29/24 10/17/24 History resmetirom 100 mg tablet 100 mg PO QDAY #30 tabs 10/10/24 5 Rx (Rezdiffra) hyoscyamine sulfate 0.125 mg tablet 0.125 mg PO BID-QID PRN dyspepsia 10/17/24 Rx #60 tabs medroxyprogesterone 10 mg tablet 10 mg PO QDAY #10 tabs 10/16/24 10/17/24 Rx (Provera) biotin 10,000 mcg chewable tablet mcg PO DAILY 10/17/24 10/17/24 History (Hair, Skin and Nails (biotin)) Is last menstrual period known: No Post menopausal: No Patient : No : No [facility] Medical History Wears glasses Anxiety Anemia Restless legs ROSS (nonalcoholic steatohepatitis) Dietary restriction History of IBS Shortness of breath on exertion Non-smoker History of echocardiogram History of Holter monitoring Contraceptive management Vaginal delivery Gestational diabetes Pre-eclampsia Preeclampsia, severe Obesity affecting Gestational diabetes Anemia in preg-unspec HPV test positive Trauma Supervision of high-risk GERD (gastroesophageal reflux disease) Epigastric abdominal pain ASCUS of cervix with negative high risk HPV Post-op bleeding HTN (hypertension) Surgical History History of ankle surgery S/P LEEP Status post colposcopy History of tonsillectomy History of esophagogastroduodenoscopy (EGD) History of colonoscopy Family History Unknown No problems noted. Father DiabetesGrandmother Diabetes paternal Heart disease paternal Hypertension paternal Social History adopted: No household members: spouse number of children: 0 current occupational status: employed current occupation: [employer] pets and animals: Yes pets and animals: other details: bearded dragon history of recent travel: No sexually active: Yes Smoking Status: Never smoker alcohol intake: current alcohol intake frequency: a few times a month details: not while substance use type: does not use well-balanced diet: about half the time caffeine: No eating out: 1-3 times/week during the past year weight has: increased > 10 lbs what type of physical activity do you participate in: none gudelia/mu-ism: None seatbelt use: always do you feel safe at home: Yes additional social history: -Aris Figueroa HPI BS Ovarian Cystectomy Details: RICHARD FIGUEROA is a 29 year old who presents for irregular menses, pelvic pain and prevention. she is also having issues with her liver and being followed by dr callejas. she has an ovarian cyst that is being followed. she hasn't had a menses for two months. we are waiting for her pap results. she is done having children. preop visit Female Reproductive History Menopausal Symptoms: No night sweats History 1 Elective abortions Hx Para 1 Spontaneous abortions Hx # Term Pregnancies Ectopic pregnancies Hx # Pregnancies Multiple births # of living children 1 Past Pregnancies Del. Date Name GA/Weeks Outcome Route Bth Weight Infant Gen Labor Lgth Anesthesia Del Locatn Provider FOB 05/07/24 Gen[place] 36 live - Male epidural [facility] WARD [place] Delivery Date: 05/07/24 Last Updated by: Lona Feliciano, RN See problem list for complications, and severe preeclampsia 36 SM ROS Const Constitutional: Denies fatigue, night sweats, weight gain or weight loss ENT ENT: Reports system reviewed and no additional complaints, except as documented GI GI: Reports as per HPI; Denies abdominal pain, constipation, nausea or vomiting Musc Musc: Denies arthralgias, back pain or muscle weakness Skin Skin/Breast: Denies alopecia, change in hair, dry skin, breast mass, breast pain or breast skin changes Neuro Neuro: Reports system reviewed and no additional complaints, except as documented Psych Psych: Reports system reviewed and no additional complaints, except as documented Endo Endo: Denies cold intolerance, excessive sweating, heat intolerance or polydipsia Bonifacio/Lymph Hematologic/Lymphatic: Denies easy bleeding, Denies easy bruising and Denies lymphadenopathy Exam Const General: cooperative, healthy appearing, comfortable and no acute distress Orientation: alert HENMT Head: normal to inspection and normocephalic Ears: hearing grossly normal bilaterally and external ears normal Nose: external nose normal and nares normal Face and sinus: normal facial exam Neck Neck: normal visual inspection and no lymphadenopathy Thyroid: thyroid normal Chest Chest palpation & inspection: normal inspection of the chest Resp Effort & Inspection: normal respiratory effort GI Inspection: normal to inspection and non-distended Palpation: soft and no hepatosplenomegaly Musc Other: gross motor intact no deficits, full bilateral strength Skin General: no rashes or lesions noted Neuro General: patient alert, patient awake, moves all extremities and no focal motor deficits Motor: muscle tone normal throughout Extrem General: normal to inspection and no pedal edema Psych Appearance: grossly normal Mental Status: mental status grossly normal Affect: normal affect Speech and Movement: speech and movement normal Coding Level of Care Code No Charge Diagnoses Cyst of right ovary N83.201 Laterality: right Contraceptive management Z30.9 Sterilization Z30.2 Assessment and Plan Assessment and Plan (1) Ovarian cyst: Status: Acute Qualifiers: Laterality: right Qualified Code(s): N83.201 - Unspecified ovarian cyst, right side Comment: recommend laparoscopic bilateral salpingectomy and ovarian cystectomy (2) Contraceptive management: Status: Acute Comment: No PA needed per Availity [id number] 07/01/24 (3) Sterilization: Status: Acute Plan After discussing the patient's diagnosis and treatment plan options, patient wishes to proceed with surgical management. I have discussed with the patient the risks, benefits, and alternatives of the procedure which include but are not limited to risks of anesthesia, bleeding, infection, possible damage to bowel, bladder, or surrounding vasculature which could lead to additional surgery to evaluate any complications. Patient agrees to procedure and wishes to proceed. ACOG/uptodate references given for additional information regarding procedure.
[2024-10-28] MEDS: Lactated Ringers 1,000 ML 15 ML IV (08:53)
[2024-10-28 09:05] LABS: Internal QC Validated? YES +Cl - CLEAR BKGD
--- NOTE | 2024-10-28 09:05 | PCM.PRE.AN2 ---
ASA Classification* ASA Classification ASA Classification: 2 Assessment & Plan Anesthesia* Anesthesia Assessment Anesthesia Assessment: Discussed sedation and/or anesthesia options, risks, benefits, and alternatives with patient/parents/legal guardian/POA. Questions invited. The patient/parents/legal guardian/POA seems to understand and agrees to proceed with anesthesia plan. Reviewed the physical assessment, medical history, allergy history and patient home medications list prior to surgery/procedure/anesthetic and documented any changes. Performed airway and anesthesia risk assessments. Anesthesia Type Anesthesia Type: General History Source History Obtained from:: Patient and Chart Anesthesia Focused Assessment* Temperature: 98.2 F Pulse Rate: 93 Blood Pressure: 137/93 Respiratory Rate: 16 Pulse Ox: 97 Oxygen Delivery Method: Room Air Airway Assessment Mouth opens: >3 cm Mallampati Score: II Teeth Condition: Caps/Crowns (Patient has 1 crown. It is tight.) Neck Range of motion (ROM): Full ROM Focused Labs Anesthesia Preop lab: CBC WBC 9.0 K/mm3 (4.4-11.0) 10/17/24 10:38 10/17/24 RBC 5.61 M/mm3 (4.2-5.4) H 10/17/24 10:38 10/17/24 Hgb 12.7 g/dL (12.0-15.0) 10/17/24 10:38 10/17/24 Hct 41.0 % (37-47) 10/17/24 10:38 10/17/24 Plt Count 462 K/mm3 (150-450) H 10/17/24 10:38 10/17/24 CHEMISTRY Potassium 3.4 mmol/L (3.3-5.1) 10/17/24 10:37 10/17/24 Sodium 137 mmol/L (133-145) 10/17/24 10:37 10/17/24 Magnesium 5.5 mg/dL (1.6-2.6) H* 05/07/24 01:05 05/07/24 BUN 11 mg/dL (4-19) 10/17/24 10:37 10/17/24 Creatinine 0.82 mg/dL (0.70-1.20) 10/17/24 10:37 10/17/24 Glucose 109 mg/dL (70-99) H 10/17/24 10:37 10/17/24 POC Glucose 101 mg/dL (74-106) 05/07/24 08:15 05/07/24 TSH 1.080 uIU/mL (0.300-4.200) 08/29/24 16:56 08/29/24 COAG PT 13.3 SECONDS (11.7-14.9) 10/17/24 10:37 10/17/24 Urine Test Negative Negative 04/06/20 10:18 04/06/20 Tst Clinic Negative 10/07/24 15:13 10/07/24 Pre-Assessment Diagnosis/Proposed Procedure Planned Operative Procedure(s): (B) Laparoscopic, Salpingectomy, Right Ovarian Cystectomy Anesthesia History Anesthesia History - dental professional: Anesthesia History - dental professional Hx Hospitalization Yes: 04/2024 CHILDBIRTH 10/17/24 09:13 Any Problems With Anesthesia No 10/17/24 09:13 Cholinesterase deficiency No 10/17/24 09:13 You/Your Family Experience No 10/17/24 09:13 fever (hyperthermia) with Relationship Recent Exposure to Contagious No 10/28/24 08:43 Disease Does patient have nerve No 10/17/24 09:13 stimulator Patient instructed to have device shut off --Does patient have Pacemaker No 10/28/24 08:43 or ICD? When Was Last Pacemaker Check QUESTION #4 FULL TEXT: You/Your Family Experience fever (hyperthermia) with Anesthesia Last Oral Intake Last Oral intake: Last Oral Intake NPO since 06:00 10/28/24 08:43 Meds taken in AM with sips of Yes 10/28/24 08:43 water? Meds patient instructed to AMLODIPINE 10/28/24 08:43 take am of surgery Any additional information?: Yes Meds taken in AM with sips of water?: Yes PONV PONV - dental professional: PONV - dental professional Female Yes 10/17/24 09:13 HX of Motion Sickness No 10/17/24 09:13 HX of N/V After Surgery No 10/17/24 09:13 Non-Smoker Yes 10/17/24 09:13 Duration of Surgery greater Yes 10/17/24 09:13 than 60 minutes Number of Risk Factors 3 10/17/24 09:13 PONV Score Moderate Risk 10/17/24 09:13 Height & Weight Height & Weight: Anesthesia: Height & Weight Height 5 ft 9 in 10/28/24 08:43 Weight: 119 kg 10/28/24 08:43 Body Mass Index (BMI) 38.7 10/28/24 08:43 Respiratory Assessment Respiratory Assessment - dental professional: Respiratory Tract Infection Hx - dental professional Hx Respiratory Tract Infection No 10/17/24 09:13 STOP Sleep Apnea STOP Sleep Apnea - dental professional: STOP Sleep Apnea - dental professional Hx Hypertension Yes: PER PT, CONTROLLED ON 10/17/24 09:13 MEDS Hx Sleep Apnea No 10/17/24 09:13 CPAP BIPAP Do you snore loudly (louder No 10/17/24 09:13 than talking or can be heard Do you often feel tired/ No 10/17/24 09:13 fatigued/ sleepy during daytime? Has anyone observed you stop No 10/17/24 09:13 breathing during sleep? STOP Results Negative 10/17/24 09:13 QUESTION #5 FULL TEXT : Do you snore loudly (louder than talking or can be heard through closed doors)? 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 Specify any problems Hx of Preganancy in last 3 No 10/17/24 09:13 Months Nurse Filling Out Transfusion MGRIFFITH 10/17/24 09:13 & Questions: Date: 10/17/24 10/17/24 09:13 Time: 09:15 10/17/24 09:13 Patient unable to answer at this time (ie. confused, unrespo /Reproduction History /Reproductive History - dental professional: /Reproductive Hx- dental professional Hx Now No 10/17/24 09:13 Gestational Age (in weeks): EDC: Hx Hx Para Hx Section SAB No 10/17/24 10:11 Active Medications Active Medications: Current Medications Generic Name Dose Route Start Last Admin Trade Name Freq PRN Reason Stop Dose Admin Lactated Ringer's 1,000 mls @ 15 mls/hr 10/28/24 08:30 10/28/24 08:53 IV 15 mls/hr .Q48H MARCELLO Administration PFSH Medical History Wears glasses Anxiety Anemia Restless legs ROSS (nonalcoholic steatohepatitis) Dietary restriction History of IBS Shortness of breath on exertion Non-smoker History of echocardiogram History of Holter monitoring Contraceptive management Vaginal delivery Gestational diabetes Pre-eclampsia Preeclampsia, severe Obesity affecting Gestational diabetes Anemia in preg-unspec HPV test positive Trauma Supervision of high-risk GERD (gastroesophageal reflux disease) Epigastric abdominal pain ASCUS of cervix with negative high risk HPV Post-op bleeding HTN (hypertension) Home Medications ?Medication ?Instructions ?Recorded ?Last Taken ?Type albuterol sulfate 90 mcg/actuation 2 puff inhalation Q6H PRN post 04/11/21 Unknown History aerosol inhaler (ProAir HFA) covid ferrous sulfate 325 mg (65 mg 65 mg PO DAILY Low iron 07/24/24 10/27/24 History iron) tablet hydrochlorothiazide 25 mg tablet 25 mg PO DAILY High blood pressure 07/24/24 10/27/24 History amlodipine 10 mg tablet 10 mg PO QDAY 08/29/24 10/28/24 History resmetirom 100 mg tablet 100 mg PO QDAY #30 tabs 10/10/24 Unknown Rx (Rezdiffra) hyoscyamine sulfate 0.125 mg tablet 0.125 mg PO BID-QID PRN dyspepsia 10/13/24 Unknown Rx #60 tabs biotin 10,000 mcg chewable tablet mcg PO DAILY 10/17/24 Unknown History (Hair, Skin and Nails (biotin)) Allergy/AdvReac Type Severity Reaction Status Date / Time latex Allergy Hives Verified 10/28/24 08:41 dicyclomine (From Bentyl) AdvReac Other Verified 10/28/24 08:41 Family History Unknown No problems noted. Father Diabetes Grandmother Diabetes paternal Heart disease paternal Hypertension paternal Surgical History History of ankle surgery S/P LEEP Status post colposcopy History of tonsillectomy History of esophagogastroduodenoscopy (EGD) History of colonoscopy Social History adopted: No household members: spouse number of children: 0 current occupational status: employed current occupation: [employer] [place] pets and animals: Yes pets and animals: other details: bearded dragon history of recent travel: No sexually active: Yes Smoking Status: Never smoker alcohol intake: current alcohol intake frequency: a few times a month details: not while substance use type: does not use well-balanced diet: about half the time caffeine: No eating out: 1-3 times/week during the past year weight has: increased > 10 lbs what type of physical activity do you participate in: none gudelia/restorationism: None seatbelt use: always do you feel safe at home: Yes additional social history: -Aris Piercer Review of Systems (Anesthesia) ROS Narrative System reviewed and no additional complaints, except as documented.
[2024-10-28 09:06] LABS: Pregnancy, Urine Negative Negative
--- NOTE | 2024-10-28 09:55 | FALS_PTH ---
PATIENT: RICHARD FIGUEROA [place] [facility] [id number] AGE/SX: 29/F ROOM: RE10/28/[address]: Dr. Wanda Diaz MD : 1995 BED: DIS: 10/28/2024 SPEC #: [id number] RECD: 10/28/24 13:17 STATUS: MARLEY REKala #: [id number] STEVE: 10/28/24 09:[address]: Wanda Diaz DEPT: SURGICAL PATHOLOGY RECD BY: Kip Hurst ENTERED: 10/28/24 13:42 SP TYPE: FALL TUBES OTHR DR: Rico Garcia, DRUM SANDER OFFBEARER-Joe Tissues: A - Fallopian tube Procedures: Surgery Specimen Level II HEADER OPERATION: Laparoscopic salpingectomy PRE-OP DIAGNOSIS: Cyst of right ovary, contraceptive management, sterilization TISSUE SUBMITTED: A- Bilateral fallopian tubes MICROSCOPIC DIAGNOSIS A. Bilateral fallopian tubes, sterilization, salpingectomy: * No significant pathologic change. * Complete luminal cross-section confirmed x2. MICROSCOPIC DESCRIPTION Slides are reviewed. GROSS DESCRIPTION A. Received in formalin in a container labeled with the patient's name, date of , and bilateral tubes are bilateral fimbriated and unoriented fallopian tube segments. The longer fallopian tube segment is 6.5 cm in length by 0.8 cm in diameter. The serosa is gaitan-pink, smooth, and glistening with multiple paratubal cysts ranging from 0.2 to 0.8 cm in greatest dimension. The largest paratubal cyst is pedunculated with a 0.7 cm stalk. There is an unremarkable fimbriated end and sectioning reveals a pinpoint lumen. The shorter fallopian tube segment is 6 cm in length by 1 cm in diameter with gaitan-pink, smooth, and glistening serosa and an unremarkable fimbriated end. There is a 0.5 cm paratubal cyst. Serial sections reveal a pinpoint lumen.Bone Density Technician sections:A1. Longer tubeA2. [place] tube [facility] 10-28-2024 CPT:51073
[2024-10-28] MEDS: Bupivacaine 0.25% 30 ML Vial (11:00)
--- NOTE | 2024-10-28 11:13 | OP.PCM_ITS ---
Problems Associated Problem List Diagnoses (1) Ovarian cyst: (2) Sterilization: Multi Select Codes Urinary/Genital Urinary/Genital CPT Codes: 73048 Laproscopic BS/O Operative Report (Standard) Operative Information Date of Procedure: 10/28/24 Pre-Operative Diagnosis: see problem list Post-Operative Diagnosis: same Surgery/Procedure Performed: laparoscopic bilateral salpingectomy reaming machine operator: Yes Fire Lieutenant: Vanda Portillo Tasks completed by corporate administrative assistant: Opening & closing, Altering tissue and Insert Trochanter Additional information services assistant?: No Type of Anesthesia: General RN Documented Start/Stop Times: Operation Date: 10/28/24 09:55 Case Time Into Pre-Op 10/28/24 08:28 Out of Pre-Op 10/28/24 10:15 Anesthesia Start 10/28/24 10:28 Into Room 10/28/24 10:28 Procedure Start 10/28/24 10:52 Procedure End 10/28/24 11:18 Anesthesia End 10/28/24 11:28 Out of Room 10/28/24 11:28 Into Recovery 10/28/24 11:35 Out of Recovery 10/28/24 12:37 Into Phase II Recovery 10/28/24 12:38 Out of Phase II 10/28/24 14:01 Procedure Start Time: 10:52 Procedure Stop Time: 11:18 Select all DRAINS/GRAFTS/IMPLANTS that apply: None Estimated Blood Loss: 25 Specimen collected: Yes Description of specimen(s) removed: bilateral tubes Description of surgery: Patient was taken in the operating room and was placed under general anesthesia was prepped and draped in normal sterile fashion in the dorsal lithotomy position. Bladder was drained of clear urine and SCDs were on preoperatively. Uterus was sounded and a uterine manipulator was placed after dilating. Attention was then paid to the abdominal portion of the procedure and the umbilicus was elevated with towel clamps and injected with Marcaine and after a 5 mm incision was made and the Veress needle was entered into the abdomen confirmed to be intra-abdominal with a low opening pressure of less than 5 mmHg. Abdomen was insufflated with CO2 gas and a 5 mm optical trocar was placed under direct visualization. right and left 5 mm port were placed under direct visualization. Uterus was well visualized and upon inspection of the pelvis bilateral tubes seen and WNL. right ovary didn't appear to have any enlarged cystic structure, holes were drilled into a cystic area and no cysts were found. bilateral tubes removed with ligasure device without complication. Excellent hemostasis was noted in the pelvis. Liver and upper abdomen were visualized notably within normal limits and no other gross abnormalities were seen in the abdomen. All instruments removed from the abdomen after gas was desufflated. Port sites were closed with 3-0 Monocryl Steri's and op sites were applied. All instruments removed from the vagina and patient was awoken and taken recovery in stable condition. Surgical Findings: nl uterus tubes ovaries Complications Complications: No
--- NOTE | 2024-10-28 11:15 | DCINST_ITS ---
Discharge Instructions Diet Discharge Diet: No restrictions DC O2, CPAP, BIPAP needs Home O2 Discharge instructions: No Dressing / Incision Discharge Activity: Return to Normal Activity, May Not Drive ( while taking narcotic pain meds, when pain free), May Shower and May Take a Tub Bath (in 7 days) May resume sexual activity in: 1 week Weight Bearing Status: Full weight bearing Dressing / Incision Call your doctor if your incision/area has: Continuous Slow Oozing, Sudden Increased Bleeding, Increased Pain/ Swelling, Increased Redness and Foul Smelling Discharge Call your doctor if you observe: Fever of 101 or Higher, Using more than 1 pad per hour, Shortness of breath, Chest pain and Uncontrolled pain Suture Line Care: Avoid Pulling/Pushing and Avoid Pinching/Bending Remove Dressing in: 1 week (if present) Cleanse incision/area with: Soap & Water and Keep Dressing Clean & Dry Follow Up Care When: Call to make an appointment with your doctor for a fu/incision check in 1- 2 weeks. Test Results: Test results from this visit will be discussed in further detail at your follow- up appointment, if applicable. Discharge Plan Admission Attending Provider: Wanda Diaz Primary Care Provider: Rico Garcia Instructions Print Language: Czech Discharge Orders/Prescriptions Prescriptions: New oxycodone-acetaminophen [Percocet] 5-325 mg tablet 1 tab PO Q4H PRN (Reason: pain) 7 Days Qty: 20 0RF naproxen 500 mg tablet 500 mg PO BID PRN PRN (Reason: Pain) Qty: 30 1RF No Action albuterol sulfate [ProAir HFA] 90 mcg/actuation HFA aerosol inhaler 2 puff inhalation Q6H PRN (Reason: post covid ) Patient Comments: has not used in a year ferrous sulfate 325 mg (65 mg iron) tablet 65 mg PO DAILY hydrochlorothiazide 25 mg tablet 25 mg PO DAILY amlodipine 10 mg tablet 10 mg PO QDAY Hair, Skin and Nails (biotin) 10,000 mcg tablet,chewable PO DAILY Rezdiffra 100 mg tablet 100 mg PO QDAY Qty: 30 11RF hyoscyamine sulfate 0.125 mg tablet 0.125 mg PO BID-QID PRN (Reason: dyspepsia) Qty: 60 0RF Disposition Disposition (needs filled in before D/C Order can be placed): Home, Self Care
--- NOTE | 2024-10-28 11:36 | PCM.POST.ANE ---
Anesthesia: Postop Eval I Current Vital Signs Temperature: 97 F Pulse Rate: 69 Blood Pressure: 122/73 Respiratory Rate: 16 Pulse Ox: 100 Oxygen Delivery Method: Non-Rebreather Oxygen Flow Rate (L/min): 10 Assessment Airway patent: Yes Spontaneous unlabored respirations: Yes Mental status: Awake and Calm nausea: No Vomiting: No Anesthesia Complication: No Fluid Hydration Crystalloid volume administer (ml): 900 Total IV fluid infused: 900 Progress Note Anesthesia document: Postop Eval 1 completed: Yes
--- NOTE | 2024-10-28 13:16 | POSTOPAN2_ITS ---
Anesthesia Postop Eval I Sum Postop Eval Completion status Anesthesia document: Postop Eval 1 completed: Yes Anesthesia Postop Eval I Summary Anesthesia Postop Eval I Summary: Anesthesia Postop Eval I: Assessment Summary Airway patent Yes 10/28/24 11:37 HARNESS FITTER.MDOT Spontaneous unlabored Yes 10/28/24 11:37 HARNESS FITTER.MDOT respirations Mental status Awake,Calm 10/28/24 11:37 HARNESS FITTER.MDOT nausea No 10/28/24 11:37 HARNESS FITTER.MDOT Vomiting No 10/28/24 11:37 HARNESS FITTER.MDOT Anesthesia Postop Eval I: Fluid Summary Crystalloid volume administer 900 10/28/24 11:37 HARNESS FITTER.MDOT (ml) Colloids volume administered ( ml) Blood Product volume administered (ml) Total IV fluid infused 900 10/28/24 11:37 HARNESS FITTER.MDOT Anesthesia Postop Eval I: Summary Notes Anesthesia Complication No 10/28/24 11:37 HARNESS FITTER.MDOT Anesthesia Complication Comment: Post-operative progress note Anesthesia: Postop Eval II Evaluation Mental status: Awake Pain Level: 2 nausea: No Vomiting: No
--- NOTE | 2024-10-28 13:16 | PCM.POSTANE2 ---
Anesthesia Postop Eval I Sum Postop Eval Completion status Anesthesia document: Postop Eval 1 completed: Yes Anesthesia Postop Eval I Summary Anesthesia Postop Eval I Summary: Anesthesia Postop Eval I: Assessment Summary Airway patent Yes 10/28/24 11:37 MATTRESS RENOVATOR.MDOT Spontaneous unlabored Yes 10/28/24 11:37 MATTRESS RENOVATOR.MDOT respirations Mental status Awake,Calm 10/28/24 11:37 MATTRESS RENOVATOR.MDOT nausea No 10/28/24 11:37 MATTRESS RENOVATOR.MDOT Vomiting No 10/28/24 11:37 MATTRESS RENOVATOR.MDOT Anesthesia Postop Eval I: Fluid Summary Crystalloid volume administer 900 10/28/24 11:37 MATTRESS RENOVATOR.MDOT (ml) Colloids volume administered ( ml) Blood Product volume administered (ml) Total IV fluid infused 900 10/28/24 11:37 MATTRESS RENOVATOR.MDOT Anesthesia Postop Eval I: Summary Notes Anesthesia Complication No 10/28/24 11:37 MATTRESS RENOVATOR.MDOT Anesthesia Complication Comment: Post-operative progress note Anesthesia: Postop Eval II Evaluation Mental status: Awake Pain Level: 2 nausea: No Vomiting: No
== END 2024-10-28 14:01 | disposition home or self-care (01) ==
LOC: SDC 08:21 → AC 08:23
PROVIDERS: Anesthesiology; PCP Nurse Practitioner Gerontology; Referring Provider Obstetrics & Gynecology; Visit Provider Obstetrics & Gynecology
PROC: (CPT 58661; principal; 2024-10-28 09:40)
DX: N83.201 Unspecified ovarian cyst, right side (principal); Z30.2 Encounter for sterilization; I10 Essential (primary) hypertension; K21.9 Gastro-esophageal reflux disease without esophagitis; Z79.899 Other long term (current) drug therapy
CPT/HCPCS: 58661; 00840; 36415; 80048; 81025; 85027; 85610; 85730; 86850; 86900; 86901; 88302; A4216; J2405